=== PATIENT | male | born 1980 | race Two or more races ===

== ENCOUNTER 2017-04-12 16:27 | Emergency (ER) | payer MEDICAID ==
[~2017-04-12] VITALS: Ht 170.2 cm; Wt 95.3 kg
[~2017-04-12 16:27] MED LIST: AMOXICILLIN500 MG PO; DOXYCYCLINE MO100 MG ORAL; GRISEOFULVIN500 MG PO; HUMALOG100 UNIT/3 SUBQ; HUMALOG100 UNIT/4 SUBQ; IBUPROFEN600 MG ORAL; IBUPROFEN600 MG PO; LANTUS SOL100 UNIT/1 SUBQ; LEVEMIR FL100 UNIT/1 SUBQ; LEVEMIR100 UNIT/1 SUBQ; LEVEMIR100 UNITS/ SUBQ; NOVOLOG100 UNIT/3 SUBQ; NOVOLOG100 UNIT/4 SQ; VIBRAMYCIN100 MG ORAL; VICODIN 5-5001 EACH PO
[2017-04-12 16:35] VITALS: BP 129/93
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
[2017-04-12] MEDS ORDERED: LOSARTAN POTASS25 MG ORAL (17:08)
[2017-04-12] MEDS ORDERED: LANTUS SOL100 UNIT/1 SUBQ (17:08)
[2017-04-12] MEDS ORDERED: TRAMADOL HCL50 MG ORAL (18:10)
[2017-04-12] MEDS ORDERED: IBUPROFEN600 MG ORAL (18:10)
[2017-04-12 18:20] VITALS: BP 129/93
--- NOTE | 2017-04-13 11:55 | Diagnostic Imaging Report ---
Indication: Pain Comparison: None Findings: Right rib series performed with 3 views. No obvious fracture seen. The right lung is essentially clear. There is no pneumothorax. Impression: No acute fracture identified
== END 2017-04-12 18:20 | disposition home or self-care (01) ==
LOC: EMR 17:30
DX: S22.31XA Fracture of one rib, right side, initial encounter for closed fracture (principal); E11.9 Type 2 diabetes mellitus without complications; Y00.XXXA Assault by blunt object, initial encounter; Y92.9 Unspecified place or not applicable
CPT/HCPCS: 99283

== ENCOUNTER 2017-11-10 14:23 | Emergency (ER) | payer MEDICAID ==
[~2017-11-10] VITALS: Ht 170.2 cm; Wt 99.8 kg
[~2017-11-10 14:23] MED LIST changes: +LOSARTAN POTASS25 MG ORAL; +TRAMADOL HCL50 MG ORAL
--- NOTE | 2017-11-10 15:03 | Emergency Room Report ---
History of Present Illness General Chief Complaint: Back Pain-No Injury Source: Patient Present Illness HPI 37 yo male patient back pain x1 week. Reports no hx of accident or trauma. Reports hx of uncontrolled diabetes. Reports pain worse when laying down and improved with standing up. Complains of diffuse abdominal pain. Reports constipation, last BM today. Denies blood in stool or diarrhea. Reports urinary symptoms, feels like hes "holding onto urine". Denies dysuria, hematuria, penile discharge. Sohail hx of kidney stones. Denies radiation of pain. Denies fever, chest pain, SOB. Denies hx of surgery. Denies hx of cancer or IVDA. Allergies: Coded Allergies: No Known Allergies (Unverified , 11/06/15) Patient History Past Medical History: see triage record Reviewed Nursing Documentation: PMH: Agreed; PSxH: Agreed Nursing Documentation-PMH Past Medical History: No History, Except For Hx Diabetes: Yes Review of Systems All Other Systems: negative except mentioned in HPI Physical Exam Vital Signs Date Time Temp Pulse Resp B/P (MAP) Pulse Ox O2 Delivery O2 Flow Rate FiO2 11/10/17 14:29 98.3 93 18 148/89 98 Room Air 98.2 Sp02 EP Interpretation: reviewed, normal General Appearance: well appearing, no apparent distress, alert, GCS 15, non- toxic Head: normocephalic, atraumatic Eyes: bilateral eye normal inspection, bilateral eye PERRL ENT: hearing grossly normal, normal pharynx, no angioedema, normal voice, uvula midline, moist mucus membranes Neck: full range of motion Respiratory: lungs clear, normal breath sounds, no rhonchi, no respiratory distress, no accessory muscle use, no wheezing, speaking full sentences Cardiovascular #1: regular rate, rhythm, no edema Gastrointestinal: no mass, no hernia, no pulsatile mass, tenderness, other - negative obturator Rectal: normal exam, normal rectal tone, prostate non-tender Genitourinary: no CVA tenderness Musculoskeletal: back normal, digits/nails normal, gait/station normal, normal range of motion, non-tender, no calf tenderness Neurologic: alert, oriented x3, responsive, motor strength/tone normal, SLR negative, sensory intact Psychiatric: mood/affect normal Skin: no rash Lymphatic: no adenopathy Medical Decision Making PA Attestation Dr. Coreas is my supervising Physician whom patient management has been discussed with. Diagnostic Impression: Primary Impression: Sacroiliitis Additional Impressions: Elevated amylase Personal history of diabetes mellitus Elevated random blood glucose level Creatinine elevation Constipation ER Course Pt presents to ED c/o back pain. Worse when laying down. DDX considered but are not limited to sprain, strain, cauda equine, epidural abscess, AAA, spinal cord compression, kidney stones. Ddx considered but are not limited to UTI, cholelithiasis, cholecystitis, pancreatitis, posterior gastric ulcer. Low suspicion for cauda equina, strength equal in bilateral lower extremities, rectal tone normal, no TTP of prostate. No fever, nontoxic appearing, no radiation of pain, low suspicion for epidural mass. No abdominal pain, no blood pressure elevation, nontoxic appearing, low suspicion for AAA. VITAL SIGNS are WNL, patient is afebrile. Mild elevation of blood pressure, followup with primary care provider for further treatment and referral. ORDERS: CBC, CMP, Lipase, UA, CT abdomen pelvis, fluids, and pain medication. ER COURSE: UA negative for nitrites and WBC, low suspicion for UTI. Will not treat with abx. CBC no elevation in WBC CMP no elevation in LFTs, shows elevated creatinine, BUN, and blood sugar. Lipase WNL, low suspicion for pancreatitis. Amylase elevated. Followup with primary care provider for repeat labs. Discuss results with patient Copy of labs provided to patient. CT shows No definite acute abnormality, Nonspecific mild bilateral perinephric fat stranding, could indicate acute inflammation but is more likely chronic. Minimal sacroiliac joint degeneration bilaterally. Patient reports feeling better following administration pain medication. Negative appendicitis, diverticulitis, cholecystitis. Copy of CT provided to patient. Followup with primary care provider for further diagnosis and treatment. Lose weight and stretch. Tylenol for pain. Will provide Colace for constipation symptoms. Discuss with patient uncontrolled diabetes can lead to complications in kidneys , eyes, and peripheral neuropathy. Labs results may be due to uncontrolled DM. Monitor blood glucose better. F/u with primary care provider for further treatment and management. Patient reports feeling better following administration of pain medication. Patient resting comfortably, in no acute distress, nontoxic appearing, walking unassisted and talking without difficulty. Patient seen and evaluated by Dr. Coreas. Agrees with treatment and plan. DISCHARGE: -Rx provided for Tylenol -Rx provided for Lidocaine patch -Rx provided for Colace At this time pt. is stable for d/c to home. At this time patient is resting comfortably, in no acute distress, nontoxic appearing, smiling and talking without difficulty. Will provide printed patient care instructions, and any necessary prescriptions. Patient instructed to follow with primary care provider for further treatment and referral as needed. Care plan and follow up instructions have been discussed with the patient prior to discharge. Patient reports understanding and agreement to treatment plan. Patient questions asked and answered. ER precautions given, patient instructed to return to ER immediately for any new or worsening of symptoms. Labs Test 11/10/17 14:35 11/10/17 15:30 Urine Color Yellow Urine Appearance Clear Urine pH 5 (4.5-8.0) Urine Specific [place] 1.020 (1.005-1.035) Urine Protein 4+ (NEGATIVE) Urine Glucose (UA) 2+ (NEGATIVE) Urine Ketones 1+ (NEGATIVE) Urine Occult Blood 2+ (NEGATIVE) Urine Nitrite Negative (NEGATIVE) Urine Bilirubin Negative (NEGATIVE) Urine Urobilinogen Normal MG/DL (0.0-1.0) Urine Leukocyte Esterase 1+ (NEGATIVE) Urine RBC 2-4 /HPF (0 - 0) Urine WBC 0-2 /HPF (0 - 0) Urine Squamous Epithelial Cells Occasional /LPF Urine Bacteria Few /HPF (NONE) White Blood Count 7.7 K/UL (4.8-10.8) Red Blood Count 4.39 M/UL (4.70-6.10) Hemoglobin 12.9 G/DL (14.2-18.0) Hematocrit 38.8 % (42.0-52.0) Mean Corpuscular Volume 88 FL (80-99) Mean Corpuscular Hemoglobin 29.5 PG (27.0-31.0) Mean Corpuscular Hemoglobin Concent 33.3 G/DL (32.0-36.0) Red Cell Distribution Width 11.7 % (11.6-14.8) Platelet Count 313 K/UL (150-450) Mean Platelet Volume 10.8 FL (6.5-10.1) Neutrophils (%) (Auto) 77.2 % (45.0-75.0) Lymphocytes (%) (Auto) 16.6 % (20.0-45.0) Monocytes (%) (Auto) 4.1 % (1.0-10.0) Eosinophils (%) (Auto) 1.0 % (0.0-3.0) Basophils (%) (Auto) 1.1 % (0.0-2.0) Sodium Level 142 MMOL/L (136-145) Potassium Level 4.6 MMOL/L (3.5-5.1) Chloride Level 105 MMOL/L (98-107) Carbon Dioxide Level 28 MMOL/L (21-32) Anion Gap 9 mmol/L (5-15) Blood Urea Nitrogen 25 mg/dL (7-18) Creatinine 2.0 MG/DL (0.55-1.30) Estimat Glomerular Filtration Rate 38.2 mL/min (>60) Glucose Level 201 MG/DL (74-106) Calcium Level 8.7 MG/DL (8.5-10.1) Total Bilirubin 0.3 MG/DL (0.2-1.0) Aspartate Amino Transf (AST/SGOT) 17 U/L (15-37) Alanine Aminotransferase (ALT/SGPT) 22 U/L (12-78) Alkaline Phosphatase 129 U/L (46-116) Total Protein 7.2 G/DL (6.4-8.2) Albumin 3.1 G/DL (3.4-5.0) Globulin 4.1 g/dL Albumin/Globulin Ratio 0.8 (1.0-2.7) Amylase Level 179 U/L (25-115) Lipase 190 U/L (73-393) CT/MRI/US Diagnostic Results CT/MRI/US Diagnostic Results : Imaging Test Ordered: CT abdomen pelvis Impression No definite acute abnormality Nonspecific mild bilateral perinephric fat stranding, could indicate acute inflammation but is more likely chronic Minimal sacroiliac joint degeneration bilaterally Last Vital Signs Date Time Temp Pulse Resp B/P (MAP) Pulse Ox O2 Delivery O2 Flow Rate FiO2 11/10/17 14:29 98.3 93 18 148/89 98 Room Air 98.2 Disposition: HOME, SELF-CARE Condition: Stable Scripts Lidocaine (Lidocaine) 1 Each Adh..patch 700 MG TP DAILY for 7 Days, #7 PATCH Prov: Philip Gibbs P.A. 11/10/17 Docusate Sodium* (COLACE*) 100 Mg Capsule 100 MG ORAL TWICE A DAY for 5 Days, #10 CAP Prov: Philip Gibbs P.A. 11/10/17 Acetaminophen* (TYLENOL EXTRA STRENGTH*) 500 Mg Tablet 500 MG ORAL Q8H PRN for Prn Headache/Temp > 101, #30 TAB 0 Refills Prov: Philip Gibbs 11/10/17 Patient Instructions: Back Pain, Adult, Blood Amylase Test, Constipation, Adult , [id number], Diabetes Mellitus and Food, Diabetic Nephropathy, Serum Creatinine Test Additional Instructions: Followup with primary care provider in 1-3 days. Discuss referral to kidney specialist. Discuss diabetes medication. Control blood glucose levels. Take medications as directed. Drink plenty of fluids. Patient questions asked and answered. ER precautions given, patient instructed to return to ER immediately for any new or worsening of symptoms. Philip Gibbs Nov 10, 2017 15:03
[2017-11-10 15:30] LABS: APPEARANCE,URINE CLEAR; BILIRUBIN, URINE NEGATIVE (NEGATIVE); GLUCOSE, URINE (UA) 2+ (NEGATIVE); KETONES,URINE 1+ (NEGATIVE); LEUKOCYTE ESTERASE ,URINE 1+ (NEGATIVE); NITRITE,URINE NEGATIVE (NEGATIVE); PH,URINE 5 (4.5-8.0); PROTEIN,URINE 4+ (NEGATIVE); UROBILINOGEN,URINE NORMAL MG/DL (0.0-1.0)
[2017-11-10 15:31] LABS: COLOR,URINE YELLOW
[2017-11-10 15:42] LABS: BASOPHILS % (AUTO) 1.1 % (0.0-2.0); HEMATOCRIT 38.8 % (42.0-52.0); HEMOGLOBIN 12.9 G/DL (14.2-18.0); LYMPHOCYTES % (AUTO) 16.6 % (20.0-45.0); MEAN CORPUSCULAR VOLUME 88 FL (80-99); MONOCYTES % (AUTO) 4.1 % (1.0-10.0); NEUTROPHILS % (AUTO) 77.2 % (45.0-75.0); PLATELET COUNT 313 K/UL (150-450); RED BLOOD COUNT 4.39 M/UL (4.70-6.10); RED CELL DISTRIBUTION WIDTH 11.7 % (11.6-14.8); WHITE BLOOD COUNT 7.7 K/UL (4.8-10.8)
[2017-11-10 15:59] LABS: ANION GAP 9 mmol/L (5-15); BLOOD UREA NITROGEN 25 mg/dL (7-18); CALCIUM 8.7 MG/DL (8.5-10.1); CARBON DIOXIDE 28 MMOL/L (21-32); CHLORIDE 105 MMOL/L (98-107); POTASSIUM 4.6 MMOL/L (3.5-5.1); SODIUM 142 MMOL/L (136-145)
--- NOTE | 2017-11-10 16:02 | Diagnostic Imaging Report ---
Indication: Abdominal pain, back pain x1 week Technique: Spiral acquisitions obtained through the abdomen and pelvis. No oral contrast utilized, per emergency room physician request No IV contrast utilized, per referring physician request.. Multiplanar reconstructions were generated. Total dose length product 1046.4 mGycm. CTDIvol(s) 18.84 mGy. Dose reduction achieved using automated exposure control Comparison: none Findings: No renal or ureteral calculi, hydronephrosis, or hydroureter demonstrated. There is nonspecific bilateral perinephric fat stranding. Lack of IV contrast limits assessment of the renal parenchyma. No gross renal parenchymal mass or cyst demonstrated. Lack of IV contrast limits assessment of the other solid organs. The liver, gallbladder, bile ducts, pancreas, adrenals are unremarkable. No retroperitoneal or mesenteric mass or adenopathy. No pelvic mass or adenopathy. Bladder is empty apparent bladder wall thickening is presumably an artifact of nondistention. Lack of enteric contrast limits assessment of the GI tract. No evidence of diverticulosis or diverticulitis. The appendix is normal. No small bowel distention. No free or loculated intraperitoneal air or fluid is evident. The distal esophagus, stomach, duodenum are unremarkable The included lung bases are clear. The bones demonstrate mild degenerative changes of the bilateral sacroiliac joints. Impression: No definite acute abnormality Nonspecific mild bilateral perinephric fat stranding, could indicate acute inflammation but is more likely chronic Minimal sacroiliac joint degeneration bilaterally The CT scanner at [facility] is accredited by the [employer] and the scans are performed using protocols designed to limit radiation exposure to as low as reasonably achievable to attain images of sufficient resolution adequate for diagnostic evaluation.
[2017-11-10 16:05] LABS: ALANINE AMINOTRANSFERASE 22 U/L (12-78); ALBUMIN 3.1 G/DL (3.4-5.0); ALBUMIN/GLOBULIN RATIO 0.8 (1.0-2.7); ALKALINE PHOSPHATASE 129 U/L (46-116); AMYLASE 179 U/L (25-115); ASPARTATE AMINO TRANSFERASE 17 U/L (15-37); BILIRUBIN,TOTAL 0.3 MG/DL (0.2-1.0)
[2017-11-10] MEDS ORDERED: TYLENOL EXTRA500 MG ORAL (17:57)
[2017-11-10] MEDS ORDERED: COLACE100 MG ORAL (17:57)
[2017-11-10] MEDS ORDERED: LIDOCAINE700 M1 TP (17:57)
[2017-11-10 18:23] VITALS: BP 166/98
== END 2017-11-10 18:27 | disposition home or self-care (01) ==
LOC: EMR 14:40
DX: M46.1 Sacroiliitis, not elsewhere classified (principal); R74.8 Abnormal levels of other serum enzymes; E11.65 Type 2 diabetes mellitus with hyperglycemia; K59.00 Constipation, unspecified; R94.4 Abnormal results of kidney function studies
CPT/HCPCS: 36415; 74176; 80053; 81003; 82150; 83690; 85025; 96361; 96374; 99284

== ENCOUNTER 2017-11-17 15:59 | Emergency (ER) | payer MEDICAID ==
[~2017-11-17] VITALS: Ht 170.2 cm; Wt 99.8 kg
[~2017-11-17 15:59] MED LIST changes: +COLACE100 MG ORAL; +LIDOCAINE700 M1 TP; +TYLENOL EXTRA500 MG ORAL
[2017-11-17 16:30] VITALS: BP 147/79
--- NOTE | 2017-11-17 16:47 | Emergency Room Report ---
History of Present Illness General Chief Complaint: General Complaint Source: Patient Present Illness HPI 37 yo male patient presents to ER complaining of difficulty with bowel movements. Reports small "edd" coming out when has a BM. Reports taking Colace and eating prunes without relief of symptoms. Recently seen in ER for similar symptoms. Also reports needs refill of DM medication; reports taking Lantus. States has primary care appointment at the end of the month. Denies fever, chest pain, SOB, nausea, vomiting, diarrhea, abdominal pain. Denies dysuria, hematuria. Allergies: Coded Allergies: No Known Allergies (Unverified , 11/06/15) Patient History Past Medical History: see triage record Reviewed Nursing Documentation: PMH: Agreed; PSxH: Agreed Nursing Documentation-PMH Hx Diabetes: Yes Review of Systems All Other Systems: negative except mentioned in HPI Physical Exam Vital Signs Date Time Temp Pulse Resp B/P (MAP) Pulse Ox O2 Delivery O2 Flow Rate FiO2 11/17/17 16:18 98.2 89 17 147/79 97 Room Air 98.2 Sp02 EP Interpretation: reviewed, normal General Appearance: well appearing, no apparent distress, alert, GCS 15, non- toxic Head: normocephalic, atraumatic Eyes: bilateral eye normal inspection, bilateral eye PERRL Neck: full range of motion Respiratory: lungs clear, normal breath sounds, no rhonchi, no respiratory distress, no accessory muscle use, no wheezing, speaking full sentences Cardiovascular #1: regular rate, rhythm, no edema Gastrointestinal: normal bowel sounds, non tender, soft, no mass, non-distended , no guarding, no rebound, other - negative Rovsing, negative TTP at McBurney's point, negative Saunders Genitourinary: no CVA tenderness Musculoskeletal: back normal, digits/nails normal, gait/station normal, normal range of motion, non-tender Neurologic: alert, oriented x3, responsive, motor strength/tone normal, sensory intact Skin: no rash Medical Decision Making PA Attestation Dr. Croeas is my supervising Physician whom patient management has been discussed with. Diagnostic Impression: Primary Impression: Constipation Additional Impression: Hx of diabetes mellitus ER Course Pt. presents to the ED requesting prescription refill and constipation. Multiple differentials were considered. Previously seen in ER, does not require labs or imaging at this time. Previously results reviewed. Vital signs: are WNL, pt. is afebrile ORDERS: PE benign, no TTP of abdomen. Informed patient do not normally provide refill of medication again in ER. Will provide 30 day supply of medication. Contact primary care provider for further treatment. Informed patient ER cannot provide refills in the future; followup, management and prescription of long-term medications must be performed by primary care provider. Will provide Lactulose for constipation symptoms. Patient asked if can perform enema at home. Instructed patient to perform as instructed on medication and consult with pharmacist for further questions and use. Drink plenty of fluids. Take Tylenol for pain symptoms that may arise. Continue to eat DM friendly diet, discuss further treatment with primary care provider at scheduled appointment. Do not cancel appointment. DISCHARGE: Rx provided for Lactulose. Rx provided for Lantus for 30 days. At this time pt is stable for d/c to home. Patient is resting comfortably, in no acute distress, nontoxic appearing, talking without difficulty. Patient to take medications as instructed Will provide with patient care instructions and any necessary prescriptions. Care plan and follow-up instructions provided. Patient instructed to follow-up with primary care provider in 3 - 5 days. Patient questions asked and answered. Patient reports understanding and agreement to treatment plan. ER precautions given. Patient instructed to return to ER immediately for any new or worsening of symptoms including but not limited to increasing SOB, persistent fever. Last Vital Signs Date Time Temp Pulse Resp B/P (MAP) Pulse Ox O2 Delivery O2 Flow Rate FiO2 11/17/17 16:18 98.2 89 17 147/79 97 Room Air 98.2 Disposition: HOME, SELF-CARE Condition: Stable Scripts Insulin Glargine (LANTUS) 100 Unit/1 Ml Insuln.pen 30 UNITS SUBQ BEDTIME, #1 EA 0 Refills Prov: Philip Gibbs P.A. 11/17/17 Lactulose (LACTULOSE*) 20 Gm/30 Ml Solution 30 ML ORAL DAILY for 3 Days, #120 ML 0 Refills Prov: Philip Gibbs P.A. 11/17/17 Patient Instructions: Constipation, Adult, [id number], Diabetes and Exercise , Medicine Refill at the Emergency Department Additional Instructions: Followup with primary care provider. Call and try to schedule earlier appointment. ER does not normally provide refills of medications. Drink fluids, do not become dehydrated. Take medications as directed. Patient questions asked and answered. ER precautions given, patient instructed to return to ER immediately for any new or worsening of symptoms. Philip Gibbs Nov 17, 2017 16:47
[2017-11-17] MEDS ORDERED: LACTULOSE20 GM/301 ORAL (17:00)
[2017-11-17] MEDS ORDERED: LANTUS SOL100 UNIT/1 SUBQ (17:01)
[2017-11-17 17:18] VITALS: BP 147/79
== END 2017-11-17 17:18 | disposition home or self-care (01) ==
LOC: EMR 16:57
DX: K59.00 Constipation, unspecified (principal); E11.9 Type 2 diabetes mellitus without complications; Z76.0 Encounter for issue of repeat prescription
CPT/HCPCS: 99284

== ENCOUNTER 2018-06-15 10:47 | Emergency (ER) | payer MEDICAID ==
[~2018-06-15] VITALS: Ht 170.2 cm; Wt 86.2 kg
[~2018-06-15 10:47] MED LIST changes: +LACTULOSE20 GM/301 ORAL
[2018-06-15] MEDS ORDERED: NORVASC10 MG ORAL (11:04)
[2018-06-15] MEDS ORDERED: METFORMIN500 MG/5 M PO (11:04)
[2018-06-15] MEDS ORDERED: LIPITOR80 MG ORAL (11:04)
[2018-06-15] MEDS ORDERED: FUROSEMIDE40 MG/5 ML ORAL (11:04)
[2018-06-15 11:38] VITALS: BP 143/73
[2018-06-15 11:40] LABS: APPEARANCE,URINE CLEAR; BILIRUBIN, URINE NEGATIVE (NEGATIVE); COLOR,URINE PALE YELLOW; GLUCOSE, URINE (UA) 3+ (NEGATIVE); KETONES,URINE NEGATIVE (NEGATIVE); LEUKOCYTE ESTERASE ,URINE NEGATIVE (NEGATIVE); NITRITE,URINE NEGATIVE (NEGATIVE); PH,URINE 6 (4.5-8.0); PROTEIN,URINE 3+ (NEGATIVE); UROBILINOGEN,URINE NORMAL MG/DL (0.0-1.0)
[2018-06-15 11:41] LABS: BASOPHILS % (AUTO) 1.4 % (0.0-2.0); HEMATOCRIT 37.8 % (42.0-52.0); HEMOGLOBIN 12.6 G/DL (14.2-18.0); LYMPHOCYTES % (AUTO) 20.6 % (20.0-45.0); MEAN CORPUSCULAR VOLUME 87 FL (80-99); MONOCYTES % (AUTO) 5.3 % (1.0-10.0); NEUTROPHILS % (AUTO) 69.7 % (45.0-75.0); PLATELET COUNT 285 K/UL (150-450); RED BLOOD COUNT 4.34 M/UL (4.70-6.10); WHITE BLOOD COUNT 7.2 K/UL (4.8-10.8)
[2018-06-15 11:56] LABS: ANION GAP 9 mmol/L (5-15); BLOOD UREA NITROGEN 35 mg/dL (7-18); CALCIUM 8.8 MG/DL (8.5-10.1); CARBON DIOXIDE 24 MMOL/L (21-32); CHLORIDE 102 MMOL/L (98-107); CREATININE 2.3 MG/DL (0.55-1.30); POTASSIUM 5.4 MMOL/L (3.5-5.1); SODIUM 135 MMOL/L (136-145)
[2018-06-15 12:01] LABS: ALANINE AMINOTRANSFERASE 29 U/L (12-78); ALBUMIN 3.1 G/DL (3.4-5.0); ALBUMIN/GLOBULIN RATIO 0.7 (1.0-2.7); ALKALINE PHOSPHATASE 137 U/L (46-116); ASPARTATE AMINO TRANSFERASE 22 U/L (15-37); BILIRUBIN,TOTAL 0.3 MG/DL (0.2-1.0)
[2018-06-15] MEDS ORDERED: FUROSEMIDE40 MG ORAL (13:57)
[2018-06-15] MEDS ORDERED: BLOOD GLUCOSE1 EAC1 MC (13:57)
[2018-06-15] MEDS ORDERED: BLOOD GLUOCSE1 EACH MC (13:57)
[2018-06-15 14:11] VITALS: BP 138/68
--- NOTE | 2018-06-15 19:49 | Emergency Room Report ---
History of Present Illness General Chief Complaint: Abnormal Labs Source: Patient Present Illness HPI The patient is a 37-year-old male presented after he was noted to have a low blood sugar. The patient had taken his Lantus insulin but did not eat. He subsequently began having nausea as well as near-syncope. She was noted to have a blood sugar low by EMS and was given dextrose. Allergies: Coded Allergies: No Known Allergies (Unverified , 11/06/15) Patient History Past Medical History: see triage record Reviewed Nursing Documentation: PMH: Agreed; PSxH: Agreed Nursing Documentation-PMH Past Medical History: No History, Except For Hx Hypertension: Yes Hx Diabetes: Yes Review of Systems All Other Systems: negative except mentioned in HPI Physical Exam Vital Signs Date Time Temp Pulse Resp B/P (MAP) Pulse Ox O2 Delivery O2 Flow Rate FiO2 06/15/18 10:53 97.9 77 17 143/73 98 Room Air General Appearance: well appearing, no apparent distress, alert, GCS 15 Head: normocephalic, atraumatic ENT: hearing grossly normal, normal voice Neck: full range of motion, supple Respiratory: no respiratory distress, speaking full sentences Cardiovascular #1: normal inspection, regular rate, rhythm Musculoskeletal: normal inspection, back normal, digits/nails normal, no calf tenderness Neurologic: normal inspection, alert, oriented x3, responsive, normal gait Psychiatric: mood/affect normal Skin: no rash Medical Decision Making Diagnostic Impression: Primary Impression: Hypoglycemic reaction ER Course Patient presented for generalized weakness. Differential diagnosis included was not limited to anemia, urinary tract infection, electrolyte abnormality, hypothyroidism, myocardial infarction, myasthenia gravis, dehydration, among others. The patient was able to tolerate fluids. The patient given note for work. Laboratory testing was notable for renal insufficiency. Patient was noted to be taking diuretics. Patient's Lasix was refilled. The patient was advised to recheck with his primary care physician tomorrow. Labs Test 06/15/18 11:30 White Blood Count 7.2 K/UL (4.8-10.8) Red Blood Count 4.34 M/UL (4.70-6.10) Hemoglobin 12.6 G/DL (14.2-18.0) Hematocrit 37.8 % (42.0-52.0) Mean Corpuscular Volume 87 FL (80-99) Mean Corpuscular Hemoglobin 29.0 PG (27.0-31.0) Mean Corpuscular Hemoglobin Concent 33.4 G/DL (32.0-36.0) Red Cell Distribution Width 11.0 % (11.6-14.8) Platelet Count 285 K/UL (150-450) Mean Platelet Volume 9.6 FL (6.5-10.1) Neutrophils (%) (Auto) 69.7 % (45.0-75.0) Lymphocytes (%) (Auto) 20.6 % (20.0-45.0) Monocytes (%) (Auto) 5.3 % (1.0-10.0) Eosinophils (%) (Auto) 3.0 % (0.0-3.0) Basophils (%) (Auto) 1.4 % (0.0-2.0) Urine Color Pale yellow Urine Appearance Clear Urine pH 6 (4.5-8.0) Urine Specific [place] 1.005 (1.005-1.035) Urine Protein 3+ (NEGATIVE) Urine Glucose (UA) 3+ (NEGATIVE) Urine Ketones Negative (NEGATIVE) Urine Blood 2+ (NEGATIVE) Urine Nitrite Negative (NEGATIVE) Urine Bilirubin Negative (NEGATIVE) Urine Urobilinogen Normal MG/DL (0.0-1.0) Urine Leukocyte Esterase Negative (NEGATIVE) Urine RBC 0-2 /HPF (0 - 0) Urine WBC 0 /HPF (0 - 0) Urine Squamous Epithelial Cells None /LPF (NONE/OCC) Urine Bacteria None /HPF (NONE) Sodium Level 135 MMOL/L (136-145) Potassium Level 5.4 MMOL/L (3.5-5.1) Chloride Level 102 MMOL/L (98-107) Carbon Dioxide Level 24 MMOL/L (21-32) Anion Gap 9 mmol/L (5-15) Blood Urea Nitrogen 35 mg/dL (7-18) Creatinine 2.3 MG/DL (0.55-1.30) Estimat Glomerular Filtration Rate 32.5 mL/min (>60) Glucose Level 228 MG/DL (74-106) Calcium Level 8.8 MG/DL (8.5-10.1) Total Bilirubin 0.3 MG/DL (0.2-1.0) Aspartate Amino Transf (AST/SGOT) 22 U/L (15-37) Alanine Aminotransferase (ALT/SGPT) 29 U/L (12-78) Alkaline Phosphatase 137 U/L (46-116) Total Protein 7.4 G/DL (6.4-8.2) Albumin 3.1 G/DL (3.4-5.0) Globulin 4.3 g/dL Albumin/Globulin Ratio 0.7 (1.0-2.7) Lipase 275 U/L (73-393) Last Vital Signs Date Time Temp Pulse Resp B/P (MAP) Pulse Ox O2 Delivery O2 Flow Rate FiO2 06/15/18 14:11 97.9 79 17 138/68 98 Room Air Status: improved Disposition: HOME, SELF-CARE Condition: Stable Scripts Blood Sugar Diagnostic (BLOOD GLUOCSE TEST) 1 Each Strip EACH MC, #1 Prov: Jonathan Coreas MD 06/15/18 Blood-Glucose Meter (BLOOD GLUCOSE METER) 1 Each Each EACH , #1 Prov: Jonathan Coreas MD 06/15/18 Furosemide* (LASIX*) 40 Mg Tablet 40 MG ORAL DAILY, #20 TAB Prov: Jonathan Coreas MD 06/15/18 Departure Forms: Return to Work Return to Work in (Days): 2 Patient Instructions: Hypoglycemia, [id number] Jonathan Coreas MD Jun 15, 2018 19:49
== END 2018-06-15 14:16 | disposition home or self-care (01) ==
LOC: EMR 11:32
DX: E11.649 Type 2 diabetes mellitus with hypoglycemia without coma (principal); I10 Essential (primary) hypertension; Z79.4 Long term (current) use of insulin
CPT/HCPCS: 36415; 80053; 81003; 82962; 83690; 85025; 99284

== ENCOUNTER 2020-07-08 09:00 | Inpatient (IN) | payer MEDICAID, OTHER ==
[2020-07-08] VITALS (10 sets, daily range): BP systolic 124–184; BP diastolic 54–73
[~2020-07-08] VITALS: Ht 170.2 cm; Wt 72.6 kg
[~2020-07-08 09:00] MED LIST changes: +BLOOD GLUCOSE1 EAC1 MC; +BLOOD GLUOCSE1 EACH MC; +FUROSEMIDE40 MG ORAL; +FUROSEMIDE40 MG/5 ML ORAL; +LIPITOR80 MG ORAL; +METFORMIN500 MG/5 M PO; +NORVASC10 MG ORAL
--- NOTE | 2020-07-08 09:08 | NUR ---
ED Nurse Note: Pt arrived with RA 34 due hyperglycemia from home, per ems their glucometer read "high". Pt has been vomtiing and has been tachycardiac on cardiac rehab nurse at 122. Pt iv line established patent and intact. blood sent to lab Addendum: 07/08/20 at 0947 by PDELEON ED Nurse Note: Pt arrived with RA 34 due hyperglycemia from home, per ems their glucometer read "high". Pt has been vomiting* and has been tachycardiac on cardiac rehab nurse at 122. Pt iv line established patent and intact. blood sent to lab
--- NOTE | 2020-07-08 09:13 | Emergency Room Report ---
History of Present Illness General Chief Complaint: Abnormal Labs Source: Patient, Medical Record Present Illness HPI Patient is a 39-year-old male presents for increased generalized weakness as well as elevated blood sugar. Had increased epigastric pain associated vomiting and diarrhea. Reports having prior history of type 1 diabetes. States he ran out of his short acting insulin. Continue to take a long-acting insulin. Denies any fever. States he is had recent negative coronavirus testing. Multiple episodes of nonbloody emesis. Had previously had occasional episodes of diabetic ketoacidosis. Denies any prior history of heart attack or coronary disease. Patient is currently staying at a transitional housing unit. Patient reports having increased thirst as well as increased urination. Blood sugar had tested "high" when brought in by EMS. 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 COVID-19 Screening: Negative COVID-19 COVID-19 Testing Source: 1 week ago Patient History Past Medical History: see triage record Reviewed Nursing Documentation: PMH: Agreed; PSxH: Agreed Nursing Documentation-PMH Past Medical History: No History, Except For Hx Hypertension: Yes Hx Diabetes: Yes Review of Systems All Other Systems: negative except mentioned in HPI Physical Exam Vital Signs Date Time Temp Pulse Resp B/P (MAP) Pulse Ox O2 Delivery O2 Flow Rate FiO2 07/08/20 08:55 98.4 124 26 162/71 (101) 99 Room Air Sp02 EP Interpretation: reviewed, normal General Appearance: alert, GCS 15, moderate distress Head: atraumatic ENT: normal ENT inspection, hearing grossly normal, normal voice, other - Mucosa dry Neck: normal inspection, full range of motion, supple, no bony tend Respiratory: lungs clear, normal breath sounds, no retraction, no wheezing, other - [place] respirations Cardiovascular #1: regular rate, rhythm, no edema Gastrointestinal: normal inspection, normal bowel sounds, non tender, soft, no guarding, no hernia Genitourinary: no CVA tenderness Musculoskeletal: normal inspection, back normal, normal range of motion Neurologic: alert, 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 Total critical care time excluding procedures approximately 45 minutes. Medical Decision Making Diagnostic Impression: Primary Impression: Diabetic keto-acidosis Additional Impression: Tachycardia ER Course Patient presented for increased generalized weakness and shortness of breath. Differential diagnosis include was not limited to diabetic ketoacidosis, electrolyte abnormality, gastroenteritis among others. Because of complexity of patient's case laboratory tests and imaging studies were ordered. Patient was noted to have prior history of type 1 diabetes and respirations and sugar suggest patient some diabetic ketoacidosis. Initial EKG showed sinus tachycardia with a rate of 119 with marked motion artifact due to rapid respirations. Patient was started on IV fluids and IV insulin. He was given antiemetics as well as antacids.Venous blood gas showed low pH consistent with diabetic ketoacidosis.Patient was noted to have marked acidosis as well as anion gap which was 32 bicarb was less than 5. Patient was started on high dose IV fluids as well as insulin drip. He was given Reglan for vomiting as well as Zofran. Dr. Kendy Freeman was contacted for inpatient management. Patient was admitted to ICU due to diabetic ketoacidosis. Labs Test 07/08/20 09:07 07/08/20 09:14 White Blood Count 21.9 K/UL (4.8-10.8) Red Blood Count 4.39 M/UL (4.70-6.10) Hemoglobin 13.4 G/DL (14.2-18.0) Hematocrit 46.1 % (42.0-52.0) Mean Corpuscular Volume 105 FL (80-99) Mean Corpuscular Hemoglobin 30.5 PG (27.0-31.0) Mean Corpuscular Hemoglobin Concent 29.0 G/DL (32.0-36.0) Red Cell Distribution Width 13.1 % (11.6-14.8) Platelet Count 320 K/UL (150-450) Mean Platelet Volume 11.6 FL (6.5-10.1) Neutrophils (%) (Auto) % (45.0-75.0) Lymphocytes (%) (Auto) % (20.0-45.0) Monocytes (%) (Auto) % (1.0-10.0) Eosinophils (%) (Auto) % (0.0-3.0) Basophils (%) (Auto) % (0.0-2.0) Sodium Level 125 MMOL/L (136-145) Potassium Level 5.8 MMOL/L (3.5-5.1) Chloride Level 88 MMOL/L (98-107) Carbon Dioxide Level 5 MMOL/L (21-32) Anion Gap 32 mmol/L (5-15) Blood Urea Nitrogen 64 mg/dL (7-18) Creatinine 4.0 MG/DL (0.55-1.30) Estimat Glomerular Filtration Rate 17.0 mL/min (>60) Glucose Level 1079 MG/DL (74-106) Calcium Level 9.0 MG/DL (8.5-10.1) Magnesium Level 2.8 MG/DL (1.8-2.4) Total Bilirubin 0.6 MG/DL (0.2-1.0) Aspartate Amino Transf (AST/SGOT) 29 U/L (15-37) Alanine Aminotransferase (ALT/SGPT) 39 U/L (12-78) Alkaline Phosphatase 189 U/L (46-116) Troponin I 0.088 ng/mL (0.000-0.056) Total Protein 7.4 G/DL (6.4-8.2) Albumin 3.4 G/DL (3.4-5.0) Globulin 4.0 g/dL Albumin/Globulin Ratio 0.9 (1.0-2.7) Lipase 140 U/L (73-393) Acetone Level Positive-moderate (NEGATIVE) Venous Blood pH 7.023 Venous Blood Partial Pressure CO2 19.1 Venous Blood Partial Pressure O2 40.5 Venous Blood HCO3 4.9 Venous Blood Total Carbon Dioxide 19.1 Venous Blood Base Excess -24.4 Venous Blood Carboxyhemoglobin 0.1 % (0.5-1.5) Methemoglobin 0.8 Last Vital Signs Date Time Temp Pulse Resp B/P (MAP) Pulse Ox O2 Delivery O2 Flow Rate FiO2 07/08/20 08:55 98.4 124 26 162/71 (101) 99 Room Air Status: unchanged Disposition: ADMITTED INPATIENT Condition: Critical Jonathan Coreas MD Jul 08, 2020 09:13
[2020-07-08] MEDS ORDERED: Insulin Human Regular 100units/ml 3ml IV PRN (09:15)
[2020-07-08] MEDS ORDERED: Insulin Reg 100 units Premix 100 ML IV SCH (09:15)
[2020-07-08] MEDS ORDERED: Insulin Human Regular 100units/ml 3ml IV ONE (09:15)
[2020-07-08] MEDS ORDERED: METFORMIN HCL500 M1 ORAL (09:16)
--- NOTE | 2020-07-08 09:24 | NUR ---
ED Nurse Note: Per ermd hold insulin, give zofran and fluids until potassium is back.
--- NOTE | 2020-07-08 09:40 | NUR ---
ED Nurse Note: Urine obtained via urinal bottle.
[2020-07-08 09:48] LABS: ALANINE AMINOTRANSFERASE 39 U/L (12-78); ALBUMIN 3.4 G/DL (3.4-5.0); ALBUMIN/GLOBULIN RATIO 0.9 (1.0-2.7); ALKALINE PHOSPHATASE 189 U/L (46-116); ANION GAP 32 mmol/L (5-15); ASPARTATE AMINO TRANSFERASE 29 U/L (15-37); BILIRUBIN,TOTAL 0.6 MG/DL (0.2-1.0); BLOOD UREA NITROGEN 64 mg/dL (7-18); CHLORIDE 88 MMOL/L (98-107); HEMATOCRIT 46.1 % (42.0-52.0); HEMOGLOBIN 13.4 G/DL (14.2-18.0); MEAN CORPUSCULAR VOLUME 105 FL (80-99); PLATELET COUNT 320 K/UL (150-450); POTASSIUM 5.8 MMOL/L (3.5-5.1); RED BLOOD COUNT 4.39 M/UL (4.70-6.10); RED CELL DISTRIBUTION WIDTH 13.1 % (11.6-14.8); SODIUM 125 MMOL/L (136-145); WHITE BLOOD COUNT 21.9 K/UL (4.8-10.8)
[2020-07-08] MEDS ORDERED: Metoclopramide 10mg/2ml Inj ONE (09:48)
--- NOTE | 2020-07-08 09:50 | NUR ---
ED Nurse Note: Informed ermd, pt is still vomiting after zofran reassesment.
[2020-07-08] MEDS ORDERED: Metoclopramide 10mg/2ml Inj IVP ONE (10:00)
[2020-07-08 10:06] LABS: CARBON DIOXIDE 5 MMOL/L (21-32)
[2020-07-08 10:19] LABS: APPEARANCE,URINE CLEAR; BILIRUBIN, URINE NEGATIVE (NEGATIVE); COLOR,URINE PALE YELLOW; GLUCOSE, URINE (UA) 4+ (NEGATIVE); KETONES,URINE 3+ (NEGATIVE); LEUKOCYTE ESTERASE ,URINE NEGATIVE (NEGATIVE); NITRITE,URINE NEGATIVE (NEGATIVE); PH,URINE 5 (4.5-8.0); PROTEIN,URINE 4+ (NEGATIVE); UROBILINOGEN,URINE NORMAL MG/DL (0.0-1.0)
--- NOTE | 2020-07-08 10:25 | NUR ---
ED Nurse Note: XRAY COMPLETED.
--- NOTE | 2020-07-08 10:30 | Diagnostic Imaging Report ---
EXAM: XR Chest, 1 View CLINICAL HISTORY: SOB TECHNIQUE: Frontal view of the chest. COMPARISON: No relevant prior studies available. FINDINGS: Lungs: Unremarkable. No consolidation. Pleural space: Unremarkable. No pneumothorax. Heart: Unremarkable. No cardiomegaly. Mediastinum: Unremarkable. Bones/joints: Unremarkable. IMPRESSION: No focal infiltrate.
--- NOTE | 2020-07-08 10:50 | NUR ---
ED Nurse Note: Pt had small watery light brown stool and defecated on self. Pt was cleaned, clothes placed in belongings bag, linens replaced. pt placed onto large chux.
--- NOTE | 2020-07-08 11:03 | NUR ---
ED Nurse Note: Nausea and vomiting ceased after administratino of reglan. pt appears comfortable and asleep in bed. additional warm blankets were provided and lights dimmed to increase pt comfort.
--- NOTE | 2020-07-08 11:05 | NUR ---
ED Nurse Note: DR. KENNEY AT BEDSIDE. PER DR. KENNEY VERBAL ORDER, CONSULT DR. GURROLA FOR ALL DIABETES RELATED ORDERS.
--- NOTE | 2020-07-08 11:15 | NUR ---
ED Nurse Note: ACCUCHECK REASSESSED STILL READS HIGH ON GLUCOMETER. INFORMED ERMD.
--- NOTE | 2020-07-08 12:45 | NUR ---
ED Nurse Note: Per ermd if glucose still reads redraw BMP.
--- NOTE | 2020-07-08 12:55 | NUR ---
ED Nurse Note: Order for repeat BMP placed per verbal order of ERMD, Repeat BMP sent to lab.
--- NOTE | 2020-07-08 13:09 | NUR ---
ED Nurse Note: Dr. Riley at bedside.
--- NOTE | 2020-07-08 13:25 | Consultation ---
Consult Note Consult Note I am asked to evaluate the patient at the request of for renal failure Patient seen in the emergency room, discussed with RN Patient is a 39-year-old male presents for increased generalized weakness as well as elevated blood sugar. Had increased epigastric pain associated vomiting and diarrhea. Reports having prior history of type 1 diabetes. States he ran out of his short acting insulin. Continue to take a long-acting insulin. Den ies any fever. States he is had recent negative coronavirus testing. Multiple episodes of nonbloody emesis. Had previously had occasional episodes of diabetic ketoacidosis. Denies any prior history of heart attack or coronary disease. Patient is currently staying at a transitional housing unit. Patient reports having increased thirst as well as increased urination. Blood sugar had tested "high" when brought in by EMS. 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 COVID-19 Screening: Negative COVID-19 COVID-19 Testing Source: 1 week ago Past Medical History: No History, Except For Hx Hypertension: Yes Hx Diabetes: Yes Vital Signs Date Time Temp Pulse Resp B/P (MAP) Pulse Ox O2 Delivery O2 Flow Rate FiO2 07/08/20 08:55 98.4 124 26 162/71 (101) 99 Room Air Assessment/Plan 39-year-old presents with DKA Acute renal failure Underlying chronic kidney disease Insulin-dependent diabetes mellitus Severe electrolyte abnormalities mainly related to severe hyperglycemia Blood sugar control Per Endo IV hydration Monitor renal parameters Kidney ultrasound Urine studies Per orders Santi Riley MD Jul 08, 2020 13:25
[2020-07-08 13:36] LABS: CALCIUM 7.6 MG/DL (8.5-10.1); CREATININE 3.6 MG/DL (0.55-1.30); POTASSIUM 4.6 MMOL/L (3.5-5.1)
--- NOTE | 2020-07-08 13:59 | NUR ---
ED Nurse Note: Informed ermd about glucose BMP, per verbal order titrate insulin drip to 7mls/hr
--- NOTE | 2020-07-08 14:36 | NUR ---
ED Nurse Note: Dr. Rubio is covering Dr. Dowling Spoke with Dr. Rubio via telephone:
--- NOTE | 2020-07-08 14:38 | NUR ---
ED Nurse Note: Will inform ERMD that Dr. Rubio is concerned of carbon dioxide, need order of bicarb
[2020-07-08] MEDS ORDERED: Sodium Bicarbonate 50ml Carp IV ONE (15:00)
--- NOTE | 2020-07-08 15:03 | Diagnostic Imaging Report ---
EXAM: US Retroperitoneal Limited, Renal CLINICAL HISTORY: RENAL-A TECHNIQUE: Real-time limited ultrasound of the retroperitoneum with image documentation. COMPARISON: None FINDINGS: Right kidney: Mild right hydronephrosis. No definite stone identified. Right kidney measures 9.6 cm in length. Left kidney: Left kidney measures 8.9 cm in length. No hydronephrosis or stone. Bladder: Distended bladder. No significant bladder wall thickening or luminal abnormality. IMPRESSION: Mild right hydronephrosis. No definite stone identified. Distended bladder.
--- NOTE | 2020-07-08 15:36 | NUR ---
ED Nurse Note: Pt is in bed asleep, VSS, no acute distress noted at this time. pt phone was charged so he can call family.
--- NOTE | 2020-07-08 16:29 | NUR ---
ED Nurse Note: Pt urinated 50cc in urinal bottle.
--- NOTE | 2020-07-08 17:15 | NUR ---
ED Nurse Note: Rechecked accucheck, pt glucose 399.
--- NOTE | 2020-07-08 18:01 | NUR ---
ED Nurse Note: Pt urinated an additional 40 cc in urinal bottle.
--- NOTE | 2020-07-08 18:13 | NUR ---
ED Nurse Note: telephone report given to CHARI Newman for continuity of care.
--- NOTE | 2020-07-08 18:14 | History and Physical Report ---
DATE OF ADMISSION: 07/08/2020 HISTORY OF PRESENT ILLNESS: The patient comes in, a 39-year-old male, because of weakness, vomiting, diarrhea, and abdominal cramps for about 3 days. Sugar was over a 1000. Patient is admitted to the ICU for DKA. I saw the patient at the emergency room. The patient was on insulin drip. There is no ICU bed at this point. Patient is very dehydrated and also had elevated blood pressure and tachycardia due to DKA. The patient was sleeping, however, easily arousable. The patient states that he forgot to give himself the insulin injection and he takes about 50 units of long-acting insulin a day. The patient also has diarrhea as well. The patient has history of marijuana use. Feels very weak. Denies respiratory symptoms. Denies shortness of breath. Denies wheezing. Denies any coughing. PAST MEDICAL HISTORY: Does have history of DKA in the past, type 1 diabetes. PAST SURGICAL HISTORY: None. FAMILY HISTORY: Does have history of diabetes. SOCIAL HISTORY: He has history of marijuana use. No history of smoking. No history of drug abuse. MEDICATIONS: Takes Lantus 50 units daily. REVIEW OF SYSTEMS: HEENT: Denies headaches. RESPIRATORY: Denies shortness of breath. Denies cough. CARDIOVASCULAR: Denies chest pain. He does have palpitation. GASTROINTESTINAL: Reports nausea, vomiting, abdominal pain, and diarrhea for about 3 days. EXTREMITIES: Denies pain in lower extremities. CENTRAL NERVOUS SYSTEM: Denies change in speech pattern, however, feels very weak. PHYSICAL EXAMINATION: VITAL SIGNS: Temperature 97.2, pulse is 100, blood pressure is 110/62. HEENT: PERRLA. NECK: Supple. CHEST: Clear to auscultation. CARDIOVASCULAR: Tachycardic. No murmurs. GASTROINTESTINAL: Diffuse tenderness; however, abdomen is very soft, not in any acute distress. No organomegaly. Positive bowel sounds. EXTREMITIES: No edema. He is able to move all 4 extremities. Has generalized weakness. Reflexes in both sides. LABORATORY DATA: Significant for sugar of 1779, bicarb of 5, anion gap of 32. EKG shows sinus tachycardia. ASSESSMENT AND PLAN: DKA, on insulin drip, tachycardia, and dehydration, really dry, vomiting, abdominal pain. The patient is going to the ICU and currently no ICU bed, but I have consulted Dr. Riley, Dr. Dowling, Dr. Mc, and Dr. Leon Perdomo already to help with the management of DKA as well as for the leukocytosis as well as for fluid management. Kendy Moran M.D. DR: KATHY JOB#: [id number] CC:
--- NOTE | 2020-07-08 18:19 | NUR ---
ED Nurse Note: Pending admission packet then will send pt up to 246-D.
--- NOTE | 2020-07-08 18:30 | NUR ---
TRANSFER TO FLOOR: Patient transferred to ICU as ordered, per ERMD. Report given to CHARI Newman. Belongings given to pt. Pt to call family.
--- NOTE | 2020-07-08 18:40 | NUR ---
NURSE NOTES: Patient received from ED. Patient AOx4 with no complaints of pain and no s/sx of distress. RR even and unlabored on RA. [place] RR, shallow and diminished. Cardiac sounds benign. ST on property assessment monitor. BL radial and pedal pulses present with no edema. Bowel sounds present with last BM reported in ED. Reports no issues voiding. Urinal at bedside. BL 20g AC with Insulin drip at 7units infusing to LT. Side rails upx2, call light within reach, bed low and locked, bed alarm on.
--- NOTE | 2020-07-08 19:30 | NUR ---
NURSE NOTES: Received Pt with Dx DKA , AOx4 appeared fatigue, on Insulin drip at 7u/hr infusing to left AC, site atraumatic. SR-ST low 100s on the monitor. Bp stable afebrile. On room air, 02 sat 100%. NO SOB noted. Will continue to monitor.
--- NOTE | 2020-07-08 19:30 | NUR ---
NURSE HAND-OFF REPORT: Latest Vital Signs: Temperature 98.1 , Pulse 104 , B/P 143 /67 , Respiratory Rate 16 , O2 SAT 99 , Room Air, O2 Flow Rate . Vital Sign Comment: STABLE EKG Rhythm: Sinus Tachycardia Rhythm change?: MD Notified?: - MD Response: Latest Mc Fall Score: Fall Risk: Safety Measures: Call light , Bed Alarm , Side Rails , Bed position . Fall Precautions: Report given to Leela MARCELINO. Patient stable. Plan of care endorsed. Admission for fast food shift lead.
--- NOTE | 2020-07-08 20:30 | NUR ---
NURSE NOTES: Blood sugar checked 278. Pt was asymptomatic. Will continue to monitor,
[2020-07-08] MEDS ORDERED: Levemir Flexpen SUBQ SCH (21:00)
--- NOTE | 2020-07-08 21:00 | NUR ---
NURSE NOTES: Dr Rubio called, and inquiring about the pt. Updated MD with pts condition with orders given and carried out. Pls see orders.
[2020-07-08] MEDS: NovoLOG Insulin Flexpen SUBQ SCH (21:08)
[2020-07-08] MEDS: Tamsulosin 0.4mg cap ORAL SCH (21:10)
--- NOTE | 2020-07-08 23:45 | NUR ---
NURSE NOTES: Called DR Mc and inform MD that pt was c/o cp midchest scale of 6 aching pain. 12 lead EKG was done and showed to md the result, Sinus tachycardia, low 100s Bp stable. No orders given.
[2020-07-09] VITALS (24 sets, daily range): BP systolic 118–183; BP diastolic 57–82
[2020-07-09] MEDS: NovoLOG Insulin Flexpen SUBQ SCH ×8 (01:00→23:39)
[2020-07-09] MEDS: traMADol 50mg tab ORAL PRN ×2 (01:29→18:19)
--- NOTE | 2020-07-09 01:29 | NUR ---
NURSE NOTES: Pt complained of midchest aching pain scale of 6, tramadol. HCL 50mg PO was given. per DR Persaud order.
--- NOTE | 2020-07-09 02:00 | NUR ---
NURSE NOTES: Pain free at this time. Seen pt sleeping . VSS afebrile.
--- NOTE | 2020-07-09 04:00 | NUR ---
NURSE NOTES: Vopiding well per urinal. Pt stating that she felt better at this time.
--- NOTE | 2020-07-09 04:54 | NUR ---
NURSE NOTES: MD Eid called and this time. Wants sliding scale to be changed to QID and ACHS. Orders read back and confirmed by
--- NOTE | 2020-07-09 05:18 | NUR ---
NURSE NOTES: Complete bath with bed changed was done.
[2020-07-09] MEDS ORDERED: NovoLOG Insulin Flexpen SUBQ SCH (06:00)
--- NOTE | 2020-07-09 06:30 | NUR ---
NURSE NOTES: Blood sugar 41, 120ml orange juice was given (non sugar free) . will re check BS in 15min.
--- NOTE | 2020-07-09 06:45 | NUR ---
NURSE NOTES: Blood sugar check 95mg/dl. Will continue to monitor.
--- NOTE | 2020-07-09 07:15 | Consultation ---
DATE OF CONSULTATION: 07/08/2020 NOTE: POOR AUDIO CONSULTING PHYSICIAN: Tian Rubio M.D. REFERRING PHYSICIAN: Kendy Moran M.D. REASON FOR CONSULTATION: seizures medications for two days, but did not make any medicine . FAMILY HISTORY: Unremarkable. PERSONAL HISTORY: Unremarkable. REVIEW OF SYSTEMS: Unremarkable. PHYSICAL EXAMINATION: GENERAL: The patient is in no acute distress. VITAL SIGNS: Blood pressure 124/65, pulse 70, respiratory rate , temperature . HEAD AND NECK: Unremarkable. No jugular venous distention. LUNGS: Clear. HEART: Heart sounds regular. ABDOMEN: Soft. Bowel sounds present. EXTREMITIES: No edema. NEUROLOGIC: Cranial nerves II through XII are grossly intact with toes downgoing to plantar stimulation. LABORATORY DATA: Glucose . ASSESSMENT: . Tian Rubio M.D. DR: EFRA JOB#: [id number] CC:
--- NOTE | 2020-07-09 07:31 | NUR ---
NURSE HAND-OFF REPORT: Latest Vital Signs: Temperature 99.2 , Pulse 108 , B/P 183 /78 , Respiratory Rate 17 , O2 SAT 100 , Room Air, O2 Flow Rate . Vital Sign Comment: EKG Rhythm: Sinus Tachycardia Rhythm change?: N MD Notified?: - MD Response: Latest Mc Fall Score: 35 Fall Risk: Medium Risk Safety Measures: Call light Within Reach, Bed Alarm Zone 1, Side Rails Side Rails x3, Bed position Low and Locked. Fall Precautions: Yellow Socks Yellow Gown Door Sign Patient Fall Education Report given to .August MARCELINO
--- NOTE | 2020-07-09 07:34 | NUR ---
NURSE NOTES: Dr. Mc conducting round and updated on patient condition. no orders given at this time. last troponin resulted at 0.088.
[2020-07-09] MEDS ORDERED: Nitroglycerin Subl 0.4mg tab SL PRN (07:45)
[2020-07-09] MEDS: Tamsulosin 0.4mg cap ORAL SCH ×2 (08:45→18:18)
[2020-07-09 09:00] LABS: MEAN CORPUSCULAR VOLUME 91 FL (80-99); PLATELET COUNT 261 K/UL (150-450); RED BLOOD COUNT 3.95 M/UL (4.70-6.10); RED CELL DISTRIBUTION WIDTH 12.5 % (11.6-14.8)
[2020-07-09] MEDS ORDERED: Losartan 25mg tab ORAL SCH (09:00)
[2020-07-09 09:01] LABS: WHITE BLOOD COUNT 22.8 K/UL (4.8-10.8)
[2020-07-09 09:46] LABS: ALBUMIN 2.5 G/DL (3.4-5.0); ALBUMIN/GLOBULIN RATIO 0.7 (1.0-2.7); BILIRUBIN,TOTAL 0.3 MG/DL (0.2-1.0); CREATININE 3.2 MG/DL (0.55-1.30); PHOSPHORUS 3.3 MG/DL (2.5-4.9); POTASSIUM 3.4 MMOL/L (3.5-5.1)
--- NOTE | 2020-07-09 10:30 | NUR ---
NURSE NOTES: Dr. Torrey Perdomo is at the bedside assessing patient. informed WBC count increased to 22.8 with no temperature. no verbal orders given at this time.
--- NOTE | 2020-07-09 10:49 | Cardiac Electrophysiology PN ---
Subjective Subjective [id number] Objective Last 24 Hour Vital Signs Date Time Temp Pulse Resp B/P (MAP) Pulse Ox O2 Delivery O2 Flow Rate FiO2 07/09/20 10:00 102 17 152/74 (100) 99 07/09/20 09:00 100 16 152/74 (100) 100 07/09/20 08:46 162/82 07/09/20 08:46 111 162/82 07/09/20 08:00 98.1 106 16 162/82 (108) 100 07/09/20 08:00 102 07/09/20 08:00 Room Air 07/09/20 07:00 105 9 154/71 (98) 100 07/09/20 06:00 108 17 183/78 (113) 100 07/09/20 05:00 107 18 173/69 (103) 100 07/09/20 04:00 101 07/09/20 04:00 99.2 102 16 121/57 (78) 98 07/09/20 04:00 Room Air 07/09/20 03:00 102 16 118/65 (82) 98 07/09/20 02:00 100 13 124/66 (85) 98 07/09/20 01:00 102 13 131/71 (91) 97 07/09/20 00:00 Room Air 07/09/20 00:00 104 07/09/20 00:00 99.0 98 18 130/66 (87) 96 07/08/20 23:00 103 20 124/65 (84) 98 07/08/20 22:00 102 14 127/68 (87) 99 07/08/20 21:00 103 15 133/62 (85) 97 07/08/20 20:00 105 0 124/64 (84) 98 07/08/20 18:43 98.1 104 16 143/67 99 Room Air 07/08/20 18:40 99.8 107 18 152/66 (94) 99 07/08/20 18:40 Room Air 07/08/20 17:25 98.2 100 15 140/73 100 Room Air 07/08/20 15:13 97.9 106 21 135/63 99 Room Air 07/08/20 13:07 97.9 105 21 125/54 100 Room Air 07/08/20 11:02 97.9 116 21 147/61 100 Room Air Intake and Output 07/08/20 07/09/20 19:00 07:00 Intake Total 4032 ml 720 ml Output Total 780 ml Balance 4032 ml -60 ml Intake Oral 320 ml IV Total 4032 ml 400 ml Output Urine Total 780 ml # Voids 1 4 Laboratory Tests Test 07/08/20 13:10 07/08/20 18:41 07/08/20 20:25 07/09/20 00:57 Sodium Level 130 MMOL/L (136-145) L Potassium Level 4.6 MMOL/L (3.5-5.1) Chloride Level 97 MMOL/L (98-107) L Carbon Dioxide Level 8 MMOL/L (21-32) *L Anion Gap 25 mmol/L (5-15) H Blood Urea Nitrogen 62 mg/dL (7-18) H Creatinine 3.6 MG/DL (0.55-1.30) H Estimat Glomerular Filtration Rate 19.2 mL/min (>60) Glucose Level 847 MG/DL (74-106) #*H Calcium Level 7.6 MG/DL (8.5-10.1) L Phosphorus Level 9.0 MG/DL (2.5-4.9) H POC Whole Blood Glucose 270 MG/DL (74-106) H Pending 128 MG/DL (74-106) H Test 07/09/20 05:31 07/09/20 08:50 Sodium Level 136 MMOL/L (136-145) Potassium Level 3.4 MMOL/L (3.5-5.1) L Chloride Level 105 MMOL/L (98-107) Carbon Dioxide Level 19 MMOL/L (21-32) L Anion Gap 12 mmol/L (5-15) Blood Urea Nitrogen 47 mg/dL (7-18) H Creatinine 3.2 MG/DL (0.55-1.30) H Estimat Glomerular Filtration Rate 22.0 mL/min (>60) Glucose Level 163 MG/DL (74-106) #H Hemoglobin A1c 14.1 % (4.3-6.0) H Uric Acid 7.0 MG/DL (2.6-7.2) Calcium Level 8.0 MG/DL (8.5-10.1) L Phosphorus Level 3.3 MG/DL (2.5-4.9) Magnesium Level 1.8 MG/DL (1.8-2.4) Total Bilirubin 0.3 MG/DL (0.2-1.0) Aspartate Amino Transf (AST/SGOT) 79 U/L (15-37) H Alanine Aminotransferase (ALT/SGPT) 27 U/L (12-78) Alkaline Phosphatase 123 U/L (46-116) H C-Reactive Protein, Quantitative 2.8 mg/dL (0.00-0.90) H Pro-B-Type Natriuretic Peptide Pending Total Protein 5.9 G/DL (6.4-8.2) L Albumin 2.5 G/DL (3.4-5.0) L Globulin 3.4 g/dL Albumin/Globulin Ratio 0.7 (1.0-2.7) L Thyroid Stimulating Hormone (TSH) 2.614 uiU/mL (0.358-3.740) White Blood Count 22.8 K/UL (4.8-10.8) *H Red Blood Count 3.95 M/UL (4.70-6.10) L Hemoglobin 12.0 G/DL (14.2-18.0) L Hematocrit 36.0 % (42.0-52.0) L Mean Corpuscular Volume 91 FL (80-99) # Mean Corpuscular Hemoglobin 30.4 PG (27.0-31.0) Mean Corpuscular Hemoglobin Concent 33.3 G/DL (32.0-36.0) Red Cell Distribution Width 12.5 % (11.6-14.8) Platelet Count 261 K/UL (150-450) Mean Platelet Volume 9.8 FL (6.5-10.1) Neutrophils (%) (Auto) % (45.0-75.0) Lymphocytes (%) (Auto) % (20.0-45.0) Monocytes (%) (Auto) % (1.0-10.0) Eosinophils (%) (Auto) % (0.0-3.0) Basophils (%) (Auto) % (0.0-2.0) Differential Total Cells Counted 100 Neutrophils % (Manual) 89 % (45-75) H Lymphocytes % (Manual) 8 % (20-45) L Monocytes % (Manual) 3 % (1-10) Eosinophils % (Manual) 0 % (0-3) Basophils % (Manual) 0 % (0-2) Band Neutrophils 0 % (0-8) Platelet Estimate Adequate Platelet Morphology Normal Hypochromasia 1+ Microbiology Date/Time Source Procedure Growth Status 07/08/20 10:38 Rectum Received Tyrell Mc MD Jul 09, 2020 10:49
--- NOTE | 2020-07-09 11:30 | NUR ---
Social Work This SW met with patient, currently in the ICU, who remains alert/oriented, independent. Patient explains he lives with his girlfriend and her two children (ages 3 and 7). Patient was recently let go from his job due to the COVID and planning to apply for unemployment. Patient requesting to discharge to home as soon as possible with no other needs or concerns. Patient positive for marijuana, while denying any other substance abuse. Patient has history of mental health concerns: depression and taking antidepressants for this. Patient has Psychiatrist, Dr Castillo that he follows up with at [facility] on [address]. Patient denied any current SI/HI. Patient requesting for his ex-spouse, Erasmo to remain his contact/decision maker @ [phone], as she is the mother of his two children who remain with her. No other needs or concerns present at this time.
--- NOTE | 2020-07-09 12:00 | NUR ---
NURSE NOTES: Dr. Mc called to inform of patient troponin level resulted at 14.294. Left message and awaiting for call back Mr. Hickey is awake and talkative with no symptoms of pain at the chest or chest heaviness, he is breathing with no distress or has shortness of breath, he is saturating at 100% on room air.
--- NOTE | 2020-07-09 12:40 | Nephrology Progress Note ---
Assessment/Plan Problem List: (1) Dehydration (2) GIOVANNI (acute kidney injury) (3) Electrolyte imbalance (4) DKA (diabetic ketoacidoses) (5) Diabetic keto-acidosis Assessment 39-year-old presents with DKA Acute renal failure Underlying chronic kidney disease Insulin-dependent diabetes mellitus Severe electrolyte abnormalities mainly related to severe hyperglycemia Plan July 09: Serum creatinine lowering. Blood sugar better controlled. Abnormal electrolytes addressed. Discussed with RN. Continue per orders. Blood sugar control Per Endo IV hydration Monitor renal parameters Kidney ultrasound Urine studies Per orders Subjective ROS Limited/Unobtainable: No Constitutional: Reports: malaise Objective Objective Last 24 Hour Vital Signs Date Time Temp Pulse Resp B/P (MAP) Pulse Ox O2 Delivery O2 Flow Rate FiO2 07/09/20 10:00 102 17 152/74 (100) 99 07/09/20 09:00 100 16 152/74 (100) 100 07/09/20 08:46 162/82 07/09/20 08:46 111 162/82 07/09/20 08:00 98.1 106 16 162/82 (108) 100 07/09/20 08:00 102 07/09/20 08:00 Room Air 07/09/20 07:00 105 9 154/71 (98) 100 07/09/20 06:00 108 17 183/78 (113) 100 07/09/20 05:00 107 18 173/69 (103) 100 07/09/20 04:00 101 07/09/20 04:00 99.2 102 16 121/57 (78) 98 07/09/20 04:00 Room Air 07/09/20 03:00 102 16 118/65 (82) 98 07/09/20 02:00 100 13 124/66 (85) 98 07/09/20 01:00 102 13 131/71 (91) 97 07/09/20 00:00 Room Air 07/09/20 00:00 104 07/09/20 00:00 99.0 98 18 130/66 (87) 96 07/08/20 23:00 103 20 124/65 (84) 98 07/08/20 22:00 102 14 127/68 (87) 99 07/08/20 21:00 103 15 133/62 (85) 97 07/08/20 20:00 105 0 124/64 (84) 98 07/08/20 18:43 98.1 104 16 143/67 99 Room Air 07/08/20 18:40 99.8 107 18 152/66 (94) 99 07/08/20 18:40 Room Air 07/08/20 17:25 98.2 100 15 140/73 100 Room Air 07/08/20 15:13 97.9 106 21 135/63 99 Room Air 07/08/20 13:07 97.9 105 21 125/54 100 Room Air Intake and Output 07/08/20 07/09/20 19:00 07:00 Intake Total 4032 ml 720 ml Output Total 780 ml Balance 4032 ml -60 ml Intake Oral 320 ml IV Total 4032 ml 400 ml Output Urine Total 780 ml # Voids 1 4 Current Medications Medications (Trade) Dose Ordered Sig/Chris Route PRN Reason Start Time Stop Time Status Last Admin Dose Admin Amlodipine Besylate (Norvasc) 10 mg DAILY ORAL 07/09/20 09:00 08/08/20 08:59 07/09/20 08:46 Atorvastatin Calcium (Lipitor) 10 mg BEDTIME ORAL 07/09/20 21:00 10/07/20 20:59 Clonidine HCl (Catapres Tab) 0.1 mg Q4H PRN ORAL BP over 160 systolic 07/08/20 13:30 10/06/20 13:29 Dextrose (Dextrose 50%) 25 ml Q30M PRN IV Hypoglycemia 07/08/20 20:30 10/06/20 20:29 Dextrose (Dextrose 50%) 50 ml Q30M PRN IV Hypoglycemia 07/08/20 20:30 10/06/20 20:29 Insulin Aspart (NovoLOG) EVERY 6 HOURS SUBQ 07/09/20 06:30 10/06/20 20:59 Insulin Aspart (NovoLOG) 10 units THREE TIMES A DAY SUBQ 07/09/20 09:00 10/07/20 08:59 07/09/20 12:06 Insulin Detemir (Levemir) 50 units Q24H SUBQ 07/08/20 21:00 10/06/20 20:59 07/08/20 21:08 Metoprolol Tartrate (Lopressor) 12.5 mg Q12HR ORAL 07/09/20 21:00 10/07/20 20:59 Nitroglycerin (Ntg) 0.4 mg Q5M PRN SL Prn Chest Pain 07/09/20 07:45 08/08/20 07:44 Pantoprazole (Protonix) 40 mg EVERY 12 HOURS ORAL 07/08/20 21:00 08/07/20 20:59 07/09/20 08:45 Potassium Chloride (K-Dur) 40 meq ONCE ORAL 07/09/20 11:45 07/09/20 13:00 07/09/20 12:05 Sodium Chloride 1,000 ml @ 100 mls/hr Q10H IV 07/08/20 20:30 08/07/20 20:29 07/09/20 06:28 Tamsulosin HCl (Flomax) 0.4 mg BID ORAL 07/08/20 21:00 08/07/20 20:59 07/09/20 08:45 Tramadol HCl (Ultram) 50 mg Q6H PRN ORAL pain 7-10 07/08/20 23:45 07/15/20 23:44 07/09/20 01:29 Laboratory Tests 07/08/20 13:10: Sodium Level 130L, Potassium Level 4.6, Chloride Level 97L, Carbon Dioxide Level 8*L, Anion Gap 25H, Blood Urea Nitrogen 62H, Creatinine 3.6H, Estimat Glomerular Filtration Rate 19.2, Glucose Level 847#*H, Calcium Level 7.6L, Phosphorus Level 9.0H 07/08/20 18:41: POC Whole Blood Glucose 270H 07/08/20 20:25: POC Whole Blood Glucose [Pending] 07/09/20 00:57: POC Whole Blood Glucose 128H 07/09/20 05:31: Sodium Level 136, Potassium Level 3.4L, Chloride Level 105, Carbon Dioxide Level 19L, Anion Gap 12, Blood Urea Nitrogen 47H, Creatinine 3.2H, Estimat Glomerular Filtration Rate 22.0, Glucose Level 163#H, Hemoglobin A1c 14.1H, Uric Acid 7.0, Calcium Level 8.0L, Phosphorus Level 3.3, Magnesium Level 1.8, Total Bilirubin 0.3, Aspartate Amino Transf (AST/SGOT) 79H, Alanine Aminotransferase (ALT/SGPT) 27, Alkaline Phosphatase 123H, C-Reactive Protein, Quantitative 2.8H, Pro-B-Type Natriuretic Peptide 5502H, Total Protein 5.9L, Albumin 2.5L, Globulin 3.4, Albumin/Globulin Ratio 0.7L, Thyroid Stimulating Hormone (TSH) 2.614 07/09/20 08:50: White Blood Count 22.8*H, Red Blood Count 3.95L, Hemoglobin 12.0L, Hematocrit 36.0L, Mean Corpuscular Volume 91#, Mean Corpuscular Hemoglobin 30.4, Mean Corpuscular Hemoglobin Concent 33.3, Red Cell Distribution Width 12.5, Platelet Count 261, Mean Platelet Volume 9.8, Neutrophils (%) (Auto) , Lymphocytes (%) (Auto) , Monocytes (%) (Auto) , Eosinophils (%) (Auto) , Basophils (%) (Auto) , Differential Total Cells Counted 100, Neutrophils % (Manual) 89H, Lymphocytes % (Manual) 8L, Monocytes % (Manual) 3, Eosinophils % (Manual) 0, Basophils % (Manual) 0, Band Neutrophils 0, Platelet Estimate Adequate, Platelet Morphology Normal, Hypochromasia 1+ 07/09/20 10:55: Troponin I 14.294H 07/09/20 11:46: POC Whole Blood Glucose 130H Height (Feet): 5 Height (Inches): 7.00 Weight (Pounds): 160 General Appearance: no apparent distress Cardiovascular: tachycardia Respiratory/Chest: decreased breath sounds Abdomen: distended Santi Riley MD Jul 09, 2020 12:40
--- NOTE | 2020-07-09 13:00 | NUR ---
NURSE NOTES: Dr. Mc called to order heparin drip to be started per pharmacy dose. Mr. Hickey remains awake and talkative with no chest pain or discomfort. he remains saturating at 99-100%. he continues to received ns at 100ml/hr.
[2020-07-09] MEDS ORDERED: Heparin 25,000u/D5W 500ml 500 ML IV SCH ×2 (14:03→21:00)
--- NOTE | 2020-07-09 14:20 | NUR ---
NURSE NOTES: Heparin drip started at 12 units/kg/hr at rate of 17.418ml/hr. new IV started on the left hand 20G on first attempt. blood return is present with no swelling or oozing at the insertion site. patient is comfortable in bed with meal tray and eating lunch, he is able to communicate with his family using his cellular phone, PTT lab sample collected and sent to laboratory.
[2020-07-09 14:28] LABS: HEMATOCRIT 33.2 % (42.0-52.0); HEMOGLOBIN 11.1 G/DL (14.2-18.0); MEAN CORPUSCULAR VOLUME 91 FL (80-99); PLATELET COUNT 229 K/UL (150-450); RED BLOOD COUNT 3.64 M/UL (4.70-6.10); RED CELL DISTRIBUTION WIDTH 12.4 % (11.6-14.8); WHITE BLOOD COUNT 18.2 K/UL (4.8-10.8)
--- NOTE | 2020-07-09 14:44 | Consultation ---
DATE OF CONSULTATION: 07/09/2020 INFECTIOUS DISEASE CONSULT PRIMARY ATTENDING PHYSICIAN: Kendy Moran MD REASON FOR CONSULT: Leukocytosis. HISTORY OF PRESENT ILLNESS: This is a 39-year-old male admitted yesterday from home because of weakness and diabetes mellitus type 1 with DKA. Recently, he ran out of long-acting insulin. He had epigastric pain, nausea, vomiting, and tachycardia with heart rate of 124 at the time of admission, leukocytosis of 21.9, and acute renal failure, acidosis, and had a blood sugar of 1079 and was admitted to ICU with diabetic ketoacidosis, who was on insulin drip that was discontinued. Currently, he feels better. PAST MEDICAL HISTORY: Diabetes mellitus type 1. Also has history of hypertension. ALLERGIES: No known drug allergies. MEDICATIONS: Metoprolol, atorvastatin, potassium chloride, amlodipine, insulin aspart, tramadol, insulin detemir, Protonix, Flomax, clonidine. SOCIAL HISTORY: Says he is , has 4 kids. Denies alcohol, drug abuse, or smoking. Denies sick contacts. REVIEW OF SYSTEMS: The patient has no complaints at the present time. PHYSICAL EXAMINATION: VITAL SIGNS: Temperature is 98.1, pulse 102, blood pressure 152/74. GENERAL APPEARANCE: Seems to have normal weight. HEAD AND NECK: [place] conjunctivae. HEART: Tachycardic. LUNGS: Clear. ABDOMEN: Soft, nontender. EXTREMITIES: No edema. NEUROLOGIC: He is awake, alert, oriented x3. LABORATORY DATA: WBC 22.8, hemoglobin 12, hematocrit 36, platelets 261, sodium 130, potassium 4.6, chloride 97, bicarb 8, BUN 62, creatinine 3.6. The latest glucose is 130. Troponin is elevated at 14.294. Hemoglobin A1c is elevated at 14.1. The latest BUN is 47, creatinine is 3.2. Chest x-ray showed no infiltrate. Renal ultrasound showed mild right hydronephrosis. No stone or obstruction. IMPRESSION: Leukocytosis and tachycardia, likely secondary to systemic inflammatory response syndrome. The patient has diabetes ketoacidosis in the setting of diabetes type 1, has acute renal failure, elevated troponin, electrolyte abnormality that is improving, right hydronephrosis that is minimal. RECOMMENDATION: Observe off antibiotic. We will follow up CBC. We will follow up cultures. At the end of my exam, I thank Dr. Moran for involving me in the care of this patient. Leon Perdomo M.D. DR: JOELLE JOB#: [id number] CC: JUSTIN
--- NOTE | 2020-07-09 16:00 | Consultation ---
DATE OF CONSULTATION: 07/09/2020 CARDIOLOGY CONSULTATION CONSULTING PHYSICIAN: Tyrell Mc MD REFERRING PHYSICIAN: Kendy Moran MD REASON FOR CONSULTATION: Elevated troponin in a patient with diabetic ketoacidosis. HISTORY OF PRESENT ILLNESS: Patient is a very pleasant 39-year-old gentleman with history of hypertension and diabetes who presented to the emergency room with generalized weakness, elevated blood sugar as well as abdominal pain and vomiting and diarrhea. Patient has history of type 1 diabetes and history of DKA before. Patient had a recent negative coronavirus testing. Patient denies any prior myocardial infarction or coronary artery disease. Yesterday, patient had episodes of chest pain and troponin was elevated. His BP and his blood pressure was also 162 with a pulse of 124. A Cardiology consultation was obtained for further evaluation. REVIEW OF SYSTEMS: Negative other than what was mentioned in the history of present illness. PAST MEDICAL HISTORY: As mentioned above. FAMILY HISTORY: Noncontributory. SOCIAL HISTORY: Denies smoking or drinking alcohol or use drugs. PHYSICAL EXAMINATION: VITAL SIGNS: Show blood pressure 152/74, pulse is 102, respirations 18, and he is afebrile. HEAD AND NECK: Shows no JVD. LUNGS: Coarse rhonchi. CARDIOVASCULAR: Shows regular S1 and S2 with no gallop or murmur. ABDOMEN: Soft. EXTREMITIES: No pitting edema. LABORATORY DATA: His labs show white count of 22.8, hemoglobin 12, hematocrit 36, and platelet count is 261. Sodium 136, potassium 3.4, BUN of 47, creatinine 3.2, and glucose of 163. His troponin was 0.088. His sodium was 130, potassium 4.6, BUN 65, creatinine 3.6. ASSESSMENT AND PLAN: 1. Elevated troponin and chest pain and T-wave inversion in lead I, aVL. We will treat the patient for non-ST elevation myocardial infarction. The troponin elevation may be just due to renal failure as the creatinine was 4. At this time, patient denies any chest pain. I will put him on aspirin and statin and low-dose beta-arnol for cardiac protection. higher dose of beta-arnol in view of patient's brittle diabetes. 2. Hypertension, on amlodipine 10 mg daily and losartan 25 mg daily. 3. Diabetic ketoacidosis, on insulin. 4. Renal failure. Patient was evaluated by Dr. Fouladian. 5. Diabetic ketoacidosis. Follow up by Dr. Rubio. It is of note that patient's echocardiogram showed ejection fraction of 65 to 70%. Thank you very much for allowing me to participate in the care of this patient. Please do not hesitate to contact me for any questions regarding my evaluation. Tyrell Mc M.D. DR: LUCRECIA JOB#: [id number] CC:
--- NOTE | 2020-07-09 16:49 | General Progress Note ---
Subjective ROS Limited/Unobtainable: Yes Allergies: Coded Allergies: No Known Allergies (Unverified , 11/06/15) Objective Last 24 Hour Vital Signs Date Time Temp Pulse Resp B/P (MAP) Pulse Ox O2 Delivery O2 Flow Rate FiO2 07/09/20 16:00 98.4 98 15 122/71 (88) 99 07/09/20 16:00 Room Air 07/09/20 15:00 102 16 128/66 (86) 97 07/09/20 14:00 105 19 143/69 (93) 100 07/09/20 13:00 105 20 148/77 (100) 07/09/20 12:00 100 07/09/20 12:00 Room Air 07/09/20 12:00 98.3 109 19 132/68 (89) 100 07/09/20 11:00 99 15 168/77 (107) 100 07/09/20 10:00 102 17 152/74 (100) 99 07/09/20 09:00 100 16 152/74 (100) 100 07/09/20 08:46 162/82 07/09/20 08:46 111 162/82 07/09/20 08:00 98.1 106 16 162/82 (108) 100 07/09/20 08:00 102 07/09/20 08:00 Room Air 07/09/20 07:00 105 9 154/71 (98) 100 07/09/20 06:00 108 17 183/78 (113) 100 07/09/20 05:00 107 18 173/69 (103) 100 07/09/20 04:00 101 07/09/20 04:00 99.2 102 16 121/57 (78) 98 07/09/20 04:00 Room Air 07/09/20 03:00 102 16 118/65 (82) 98 07/09/20 02:00 100 13 124/66 (85) 98 07/09/20 01:00 102 13 131/71 (91) 97 07/09/20 00:00 Room Air 07/09/20 00:00 104 07/09/20 00:00 99.0 98 18 130/66 (87) 96 07/08/20 23:00 103 20 124/65 (84) 98 07/08/20 22:00 102 14 127/68 (87) 99 07/08/20 21:00 103 15 133/62 (85) 97 07/08/20 20:00 105 0 124/64 (84) 98 07/08/20 18:43 98.1 104 16 143/67 99 Room Air 07/08/20 18:40 99.8 107 18 152/66 (94) 99 07/08/20 18:40 Room Air 07/08/20 17:25 98.2 100 15 140/73 100 Room Air Intake and Output 07/08/20 07/09/20 19:00 07:00 Intake Total 4032 ml 775 ml Output Total 780 ml Balance 4032 ml -5 ml Intake Oral 320 ml IV Total 4032 ml 455 ml Output Urine Total 780 ml # Voids 1 4 Laboratory Tests 07/08/20 18:41: POC Whole Blood Glucose 270H 07/08/20 20:25: POC Whole Blood Glucose [Pending] 07/09/20 00:57: POC Whole Blood Glucose 128H 07/09/20 05:31: Sodium Level 136, Potassium Level 3.4L, Chloride Level 105, Carbon Dioxide Level 19L, Anion Gap 12, Blood Urea Nitrogen 47H, Creatinine 3.2H, Estimat Glomerular Filtration Rate 22.0, Glucose Level 163#H, Hemoglobin A1c 14.1H, Uric Acid 7.0, Calcium Level 8.0L, Phosphorus Level 3.3, Magnesium Level 1.8, Total Bilirubin 0.3, Aspartate Amino Transf (AST/SGOT) 79H, Alanine Aminotransferase (ALT/SGPT) 27, Alkaline Phosphatase 123H, C-Reactive Protein, Quantitative 2.8H, Pro-B-Type Natriuretic Peptide 5502H, Total Protein 5.9L, Albumin 2.5L, Globulin 3.4, Albumin/Globulin Ratio 0.7L, Thyroid Stimulating Hormone (TSH) 2.614 07/09/20 08:50: White Blood Count 22.8*H, Red Blood Count 3.95L, Hemoglobin 12.0L, Hematocrit 36.0L, Mean Corpuscular Volume 91#, Mean Corpuscular Hemoglobin 30.4, Mean Corpuscular Hemoglobin Concent 33.3, Red Cell Distribution Width 12.5, Platelet Count 261, Mean Platelet Volume 9.8, Neutrophils (%) (Auto) , Lymphocytes (%) (Auto) , Monocytes (%) (Auto) , Eosinophils (%) (Auto) , Basophils (%) (Auto) , Differential Total Cells Counted 100, Neutrophils % (Manual) 89H, Lymphocytes % (Manual) 8L, Monocytes % (Manual) 3, Eosinophils % (Manual) 0, Basophils % (Manual) 0, Band Neutrophils 0, Platelet Estimate Adequate, Platelet Morphology Normal, Hypochromasia 1+ 07/09/20 10:55: Troponin I 14.294H 07/09/20 11:46: POC Whole Blood Glucose 130H 07/09/20 13:50: White Blood Count 18.2H, Red Blood Count 3.64L, Hemoglobin 11.1L, Hematocrit 33.2L, Mean Corpuscular Volume 91, Mean Corpuscular Hemoglobin 30.4, Mean Corpuscular Hemoglobin Concent 33.3, Red Cell Distribution Width 12.4, Platelet Count 229, Mean Platelet Volume 9.9, Neutrophils (%) (Auto) , Lymphocytes (%) (Auto) , Monocytes (%) (Auto) , Eosinophils (%) (Auto) , Basophils (%) (Auto) , Differential Total Cells Counted 100, Neutrophils % (Manual) 90H, Lymphocytes % (Manual) 7L, Monocytes % (Manual) 3, Eosinophils % (Manual) 0, Basophils % (Manual) 0, Band Neutrophils 0, Platelet Estimate Adequate, Platelet Morphology Normal, Hypochromasia 1+, Activated Partial Thromboplast Time 24 Height (Feet): 5 Height (Inches): 7.00 Weight (Pounds): 160 Assessment/Plan Problem List: (1) Diabetes mellitus type 1 ICD Codes: E10.9 - Type 1 diabetes mellitus without complications SNOMED: 45849357 (2) Hyperglycemia (3) Diabetic ketoacidosis ICD Codes: E11.10 - Type 2 diabetes mellitus with ketoacidosis without coma SNOMED: 55030776, 835778634 (4) DKA (diabetic ketoacidoses) ICD Codes: E11.10 - Type 2 diabetes mellitus with ketoacidosis without coma SNOMED: 57997013, 841106961 (5) Dehydration ICD Codes: E86.0 - Dehydration SNOMED: 88062831 (6) Electrolyte imbalance ICD Codes: E87.8 - Other disorders of electrolyte and fluid balance, not el sewhere classified SNOMED: 150486206 (7) GIOVANNI (acute kidney injury) ICD Codes: N17.9 - Acute kidney failure, unspecified SNOMED: 6659360, 68843742 Status: progressing Assessment/Plan: dka is improved afebrile sugar is improving abdominal pain and vomitting is improving vitals stable Kendy Moran MD Jul 09, 2020 16:49
--- NOTE | 2020-07-09 17:01 | NUR ---
CASE MANAGEMENT:INITIAL REVIEW 39 YR OLD MALE BIBA FROM HOME CC;ABNORMAL LABS SI;DIABETIC KETOACIDOSIS. TACHYCARDIA. 98.4 124 26 184/67 99% ON RA WBC 21.9 NA 125 K+ 5.8 CL 88 CO2 5 ANION GAP 32 BUN 64 CR 4.0 BG 1079 MAG 2.8 ALP 189 TROP 0.088 UA+ PROTEIN, KETONES, BLOOD, RBC URINE TOX (+) THC CXR ~ NO FOCAL INFILTRATE RENAL US ~ Mild right hydronephrosis. No definite stone identified. Distended bladder. IS;IVF NS BOLUS X3 ZOFRAN IV INSULIN GTT ADMITTED TO ICU ICU STATUS DCP;FROM HOME
--- NOTE | 2020-07-09 17:38 | NUR ---
NURSE NOTES: Heparin drip remains at 12 units/kg/hr at rate of 17.418ml/hr. Left hand IV remains patent with no leaking or swelling noted at insertion site, patient is comfortable and resting in bed, he remains on room air with no distress and saturating at 98-99%. heart rate remains at 106 in sinus tachycardia with no arrhythmias.
--- NOTE | 2020-07-09 18:08 | General Progress Note ---
Subjective Allergies: Coded Allergies: No Known Allergies (Unverified , 11/06/15) All Systems: reviewed and negative except above Subjective events noted interval notes reviewed glucose values improved Item Value Date Time Bedside Blood Glucose 41 mg/dl L 07/09/20 0628 Bedside Blood Glucose 128 mg/dl H 07/09/20 0100 Bedside Blood Glucose 276 mg/dl H 07/08/20 2108 Bedside Blood Glucose 270 mg/dl H 07/08/20 1840 Bedside Blood Glucose Critically High Result 07/08/20 1250 Bedside Blood Glucose Critically High Result 07/08/20 1011 Losartan Potassium 25 mg 07/09/20 0900 (Cozaar) DAILY/ORAL Bedside Blood Glucose 130 mg/dl H 07/09/20 1206 Bedside Blood Glucose 167 mg/dl H 07/09/20 0847 Bedside Blood Glucose 95 mg/dl 07/09/20 0645 Objective Last 24 Hour Vital Signs Date Time Temp Pulse Resp B/P (MAP) Pulse Ox O2 Delivery O2 Flow Rate FiO2 07/09/20 17:00 106 19 141/67 (91) 100 07/09/20 16:00 100 07/09/20 16:00 98.4 98 15 122/71 (88) 99 07/09/20 16:00 Room Air 07/09/20 15:00 102 16 128/66 (86) 97 07/09/20 14:00 105 19 143/69 (93) 100 07/09/20 13:00 105 20 148/77 (100) 07/09/20 12:00 100 07/09/20 12:00 Room Air 07/09/20 12:00 98.3 109 19 132/68 (89) 100 07/09/20 11:00 99 15 168/77 (107) 100 07/09/20 10:00 102 17 152/74 (100) 99 07/09/20 09:00 100 16 152/74 (100) 100 07/09/20 08:46 162/82 07/09/20 08:46 111 162/82 07/09/20 08:00 98.1 106 16 162/82 (108) 100 07/09/20 08:00 102 07/09/20 08:00 Room Air 07/09/20 07:00 105 9 154/71 (98) 100 07/09/20 06:00 108 17 183/78 (113) 100 07/09/20 05:00 107 18 173/69 (103) 100 07/09/20 04:00 101 07/09/20 04:00 99.2 102 16 121/57 (78) 98 07/09/20 04:00 Room Air 07/09/20 03:00 102 16 118/65 (82) 98 07/09/20 02:00 100 13 124/66 (85) 98 07/09/20 01:00 102 13 131/71 (91) 97 07/09/20 00:00 Room Air 07/09/20 00:00 104 07/09/20 00:00 99.0 98 18 130/66 (87) 96 07/08/20 23:00 103 20 124/65 (84) 98 07/08/20 22:00 102 14 127/68 (87) 99 07/08/20 21:00 103 15 133/62 (85) 97 07/08/20 20:00 105 0 124/64 (84) 98 07/08/20 18:43 98.1 104 16 143/67 99 Room Air 07/08/20 18:40 99.8 107 18 152/66 (94) 99 07/08/20 18:40 Room Air Intake and Output 07/08/20 07/09/20 19:00 07:00 Intake Total 4032 ml 775 ml Output Total 780 ml Balance 4032 ml -5 ml Intake Oral 320 ml IV Total 4032 ml 455 ml Output Urine Total 780 ml # Voids 1 4 Laboratory Tests 07/08/20 18:41: POC Whole Blood Glucose 270H 07/08/20 20:25: POC Whole Blood Glucose [Pending] 07/09/20 00:57: POC Whole Blood Glucose 128H 07/09/20 05:31: Sodium Level 136, Potassium Level 3.4L, Chloride Level 105, Carbon Dioxide Level 19L, Anion Gap 12, Blood Urea Nitrogen 47H, Creatinine 3.2H, Estimat Glomerular Filtration Rate 22.0, Glucose Level 163#H, Hemoglobin A1c 14.1H, Uric Acid 7.0, Calcium Level 8.0L, Phosphorus Level 3.3, Magnesium Level 1.8, Total Bilirubin 0.3, Aspartate Amino Transf (AST/SGOT) 79H, Alanine Aminotransferase (ALT/SGPT) 27, Alkaline Phosphatase 123H, C-Reactive Protein, Quantitative 2.8H, Pro-B-Type Natriuretic Peptide 5502H, Total Protein 5.9L, Albumin 2.5L, Globulin 3.4, Albumin/Globulin Ratio 0.7L, Thyroid Stimulating Hormone (TSH) 2.614 07/09/20 08:50: White Blood Count 22.8*H, Red Blood Count 3.95L, Hemoglobin 12.0L, Hematocrit 36.0L, Mean Corpuscular Volume 91#, Mean Corpuscular Hemoglobin 30.4, Mean Corpuscular Hemoglobin Concent 33.3, Red Cell Distribution Width 12.5, Platelet Count 261, Mean Platelet Volume 9.8, Neutrophils (%) (Auto) , Lymphocytes (%) (Auto) , Monocytes (%) (Auto) , Eosinophils (%) (Auto) , Basophils (%) (Auto) , Differential Total Cells Counted 100, Neutrophils % (Manual) 89H, Lymphocytes % (Manual) 8L, Monocytes % (Manual) 3, Eosinophils % (Manual) 0, Basophils % (Manual) 0, Band Neutrophils 0, Platelet Estimate Adequate, Platelet Morphology Normal, Hypochromasia 1+ 07/09/20 10:55: Troponin I 14.294H 07/09/20 11:46: POC Whole Blood Glucose 130H 07/09/20 13:50: White Blood Count 18.2H, Red Blood Count 3.64L, Hemoglobin 11.1L, Hematocrit 33.2L, Mean Corpuscular Volume 91, Mean Corpuscular Hemoglobin 30.4, Mean Corpuscular Hemoglobin Concent 33.3, Red Cell Distribution Width 12.4, Platelet Count 229, Mean Platelet Volume 9.9, Neutrophils (%) (Auto) , Lymphocytes (%) (Auto) , Monocytes (%) (Auto) , Eosinophils (%) (Auto) , Basophils (%) (Auto) , Differential Total Cells Counted 100, Neutrophils % (Manual) 90H, Lymphocytes % (Manual) 7L, Monocytes % (Manual) 3, Eosinophils % (Manual) 0, Basophils % (Manual) 0, Band Neutrophils 0, Platelet Estimate Adequate, Platelet Morphology Normal, Hypochromasia 1+, Activated Partial Thromboplast Time 24 Height (Feet): 5 Height (Inches): 7.00 Weight (Pounds): 160 General Appearance: no apparent distress Cardiovascular: normal rate Respiratory/Chest: lungs clear Abdomen: normal bowel sounds Pelvis: normal external exam Objective Current Medications Medications (Trade) Dose Ordered Sig/Chris Route PRN Reason Start Time Stop Time Status Last Admin Dose Admin Amlodipine Besylate (Norvasc) 10 mg DAILY ORAL 07/09/20 09:00 08/08/20 08:59 07/09/20 08:46 Atorvastatin Calcium (Lipitor) 10 mg BEDTIME ORAL 07/09/20 21:00 10/07/20 20:59 Clonidine HCl (Catapres Tab) 0.1 mg Q4H PRN ORAL BP over 160 systolic 07/08/20 13:30 10/06/20 13:29 Dextrose (Dextrose 50%) 25 ml Q30M PRN IV Hypoglycemia 07/08/20 20:30 10/06/20 20:29 Dextrose (Dextrose 50%) 50 ml Q30M PRN IV Hypoglycemia 07/08/20 20:30 10/06/20 20:29 Heparin Sodium/ Dextrose 500 ml @ 17.418 mls/ hr ADJUST PER PROTOCOL IV 07/09/20 14:03 08/08/20 14:02 07/09/20 14:19 Insulin Aspart (NovoLOG) EVERY 6 HOURS SUBQ 07/09/20 06:30 10/06/20 20:59 Insulin Aspart (NovoLOG) 10 units THREE TIMES A DAY SUBQ 07/09/20 09:00 10/07/20 08:59 07/09/20 12:06 Insulin Detemir (Levemir) 50 units Q24H SUBQ 07/08/20 21:00 10/06/20 20:59 07/08/20 21:08 Metoprolol Tartrate (Lopressor) 12.5 mg Q12HR ORAL 07/09/20 21:00 10/07/20 20:59 Nitroglycerin (Ntg) 0.4 mg Q5M PRN SL Prn Chest Pain 07/09/20 07:45 08/08/20 07:44 Pantoprazole (Protonix) 40 mg EVERY 12 HOURS ORAL 07/08/20 21:00 08/07/20 20:59 07/09/20 08:45 Sodium Chloride 1,000 ml @ 100 mls/hr Q10H IV 07/08/20 20:30 08/07/20 20:29 07/09/20 06:28 Tamsulosin HCl (Flomax) 0.4 mg BID ORAL 07/08/20 21:00 08/07/20 20:59 07/09/20 08:45 Tramadol HCl (Ultram) 50 mg Q6H PRN ORAL pain 7-10 07/08/20 23:45 07/15/20 23:44 07/09/20 01:29 Assessment/Plan Problem List: (1) Diabetes mellitus type 1 (2) Diabetic keto-acidosis ICD Codes: E11.10 - Type 2 diabetes mellitus with ketoacidosis without coma SNOMED: 959239446, [id number] Status: progressing Assessment/Plan: reduce Levemir to 40 units qhs continue Novolog 10 units ac tid + SSI Dallas Dowling MD Jul 09, 2020 18:08
--- NOTE | 2020-07-09 20:46 | NUR ---
NURSE NOTES: Dr. Mc aware of patient troponin level decrease to 8.217. monitor troponin in morning blood draw, no further orders given at this time.
[2020-07-09] MEDS ORDERED: Heparin 5000 units/ml inj IV SCH (21:00)
[2020-07-09] MEDS ORDERED: Levemir Flexpen SUBQ SCH (21:00)
[2020-07-09] MEDS: Metoprolol Tartrate 12.5mg TAB ORAL SCH (21:21)
--- NOTE | 2020-07-09 22:30 | NUR ---
NURSE NOTES: Received patient from CHARI Koch. Patient is awake, alert and oriented x4. On room air; showing no signs of pain or distress. On a CCHO medium diet with minimal appetite. Urinal and commode at bedside. Call light within reach, reminded patient not to get out of bed and to use the call light for assistance. Left A/C 18g saline locked, left hand 20g running NS @ 100ml/hr and Heparin drip @ 16units/kg/hr. Next timed PTT scheduled for 07/10 0300. Safety measures in place; bed low, locked and alarm is on. Will continue plan of care.
--- NOTE | 2020-07-09 22:30 | NUR ---
NURSE HAND-OFF REPORT: Latest Vital Signs: Temperature 98.4 , Pulse 92 , B/P 132 /68 , Respiratory Rate 18 , O2 SAT 96 , Room Air, O2 Flow Rate . Vital Sign Comment: EKG Rhythm: Sinus Rhythm Rhythm change?: N MD Notified?: - MD Response: Latest Mc Fall Score: 35 Fall Risk: Medium Risk Safety Measures: Call light Within Reach, Bed Alarm Zone 1, Side Rails Side Rails x3, Bed position Low and Locked. Fall Precautions: Yellow Socks Yellow Gown Patient Fall Education Report given to CHARI Casanova. endorsed to nurse heparin drip was changed to 16units/kg/hr and next PTT is at 0300 on 07/10/20.
[2020-07-09] MEDS ORDERED: Morphine Sulfate 2mg/ml Inj(IV/IM USE ONLY) IVP PRN (23:15)
[2020-07-10] VITALS (12 sets, daily range): BP systolic 110–179; BP diastolic 62–86
--- NOTE | 2020-07-10 | NUR ---
NURSE NOTES: Patient complaints of upper mid back pain that radiated to the neck area. Tramadol PRN q6hr is not effective; patient states it only helps for 20mins. Patient states that he is restless and a bit agitated due to the pain and being confined in a small room with alot of wires hooked up. Informed Dr. Nelson. Morphine 2mg IV ordered and given for severe upper back pain of 7/10. Patient is now resting comfortably; vital signs stable. Will continue to monitor.
--- NOTE | 2020-07-10 02:00 | NUR ---
NURSE NOTES: Patient is resting comfortably. All needs are met. Vital signs stable. BP:110/67 HR:85, O2sat:97% on room air.
--- NOTE | 2020-07-10 02:35 | NUR ---
NURSE NOTES: Patient concerned about his blood sugar and ask to check. Resulted 86. Water and pillows given as requested. Patient is comfortable.
[2020-07-10 03:44] LABS: BASOPHILS % (AUTO) 0.8 % (0.0-2.0); EOSINOPHILS % (AUTO) 0.4 % (0.0-3.0); HEMATOCRIT 33.2 % (42.0-52.0); HEMOGLOBIN 10.9 G/DL (14.2-18.0); LYMPHOCYTES % (AUTO) 14.7 % (20.0-45.0); MEAN CORPUSCULAR VOLUME 92 FL (80-99); MONOCYTES % (AUTO) 7.3 % (1.0-10.0); NEUTROPHILS % (AUTO) 76.9 % (45.0-75.0); PLATELET COUNT 222 K/UL (150-450); RED BLOOD COUNT 3.62 M/UL (4.70-6.10); RED CELL DISTRIBUTION WIDTH 12.6 % (11.6-14.8); WHITE BLOOD COUNT 11.8 K/UL (4.8-10.8)
[2020-07-10 04:05] LABS: PHOSPHORUS 2.9 MG/DL (2.5-4.9)
[2020-07-10 04:11] LABS: ALANINE AMINOTRANSFERASE 30 U/L (12-78); ALBUMIN 2.4 G/DL (3.4-5.0); ALBUMIN/GLOBULIN RATIO 0.7 (1.0-2.7); ALKALINE PHOSPHATASE 116 U/L (46-116); ANION GAP 8 mmol/L (5-15); ASPARTATE AMINO TRANSFERASE 45 U/L (15-37); BILIRUBIN,TOTAL 0.4 MG/DL (0.2-1.0); BLOOD UREA NITROGEN 33 mg/dL (7-18); CALCIUM 8.1 MG/DL (8.5-10.1); CARBON DIOXIDE 23 MMOL/L (21-32); CHLORIDE 106 MMOL/L (98-107); CHOLESTEROL 180 MG/DL (< 200); CREATININE 2.7 MG/DL (0.55-1.30); HDL CHOLESTEROL 60 MG/DL (40-60); POTASSIUM 3.5 MMOL/L (3.5-5.1); SODIUM 136 MMOL/L (136-145); TRIGLYCERIDES 99 MG/DL (30-150)
--- NOTE | 2020-07-10 05:00 | NUR ---
NURSE NOTES: Patient became concern with his blood sugar; resulted 52, orange juice given and andres re-check in 15min.
--- NOTE | 2020-07-10 05:15 | NUR ---
NURSE NOTES: B/S reassessed, resulting 80. Patient insisted to have another orange juice.
[2020-07-10] MEDS: NovoLOG Insulin Flexpen SUBQ SCH ×4 (05:43→12:53)
--- NOTE | 2020-07-10 06:00 | NUR ---
NURSE NOTES: EKG done and placed into chart. Assisted bed bath, linens changed. Patient is comfortable.
--- NOTE | 2020-07-10 06:31 | General Progress Note ---
Subjective Allergies: Coded Allergies: No Known Allergies (Unverified , 11/06/15) All Systems: reviewed and negative except above Subjective events noted interval notes reviewed hypoglycemic this morning despite lower Levemir dosage from 50 to 40 u Item Value Date Time Bedside Blood Glucose 80 mg/dl 07/10/20 0543 Bedside Blood Glucose 168 mg/dl H 07/10/20 0000 Bedside Blood Glucose 109 mg/dl 07/09/20 2124 Bedside Blood Glucose 115 mg/dl 07/09/20 1821 Bedside Blood Glucose 130 mg/dl H 07/09/20 1206 Bedside Blood Glucose 167 mg/dl H 07/09/20 0847 Bedside Blood Glucose 95 mg/dl 07/09/20 0645 Objective Last 24 Hour Vital Signs Date Time Temp Pulse Resp B/P (MAP) Pulse Ox O2 Delivery O2 Flow Rate FiO2 07/10/20 06:00 94 13 160/80 (106) 100 07/10/20 05:00 98.2 98 15 162/72 (102) 100 07/10/20 04:00 Room Air 07/10/20 04:00 88 15 125/73 (90) 98 07/10/20 03:05 89 07/10/20 03:00 92 14 148/72 (97) 100 07/10/20 02:00 85 15 110/67 (81) 97 07/10/20 01:00 84 15 115/62 (79) 96 07/10/20 00:00 98.5 86 15 132/72 (92) 100 07/10/20 00:00 Room Air 07/09/20 23:24 84 07/09/20 23:00 84 13 138/77 (97) 100 07/09/20 22:00 92 18 132/68 (89) 96 07/09/20 21:21 103 162/76 07/09/20 21:00 102 16 162/76 (104) 100 07/09/20 20:00 98.4 101 20 169/82 (111) 100 07/09/20 20:00 Room Air 07/09/20 20:00 107 07/09/20 19:00 108 20 164/80 (108) 100 07/09/20 18:00 111 17 144/66 (92) 100 07/09/20 17:00 106 19 141/67 (91) 100 07/09/20 16:00 100 07/09/20 16:00 98.4 98 15 122/71 (88) 99 07/09/20 16:00 Room Air 07/09/20 15:00 102 16 128/66 (86) 97 07/09/20 14:00 105 19 143/69 (93) 100 07/09/20 13:00 105 20 148/77 (100) 07/09/20 12:00 100 07/09/20 12:00 Room Air 07/09/20 12:00 98.3 109 19 132/68 (89) 100 07/09/20 11:00 99 15 168/77 (107) 100 07/09/20 10:00 102 17 152/74 (100) 99 07/09/20 09:00 100 16 152/74 (100) 100 07/09/20 08:46 162/82 07/09/20 08:46 111 162/82 07/09/20 08:00 98.1 106 16 162/82 (108) 100 07/09/20 08:00 102 07/09/20 08:00 Room Air 07/09/20 07:00 105 9 154/71 (98) 100 Intake and Output 0 07/09/20 07/10/20 19:00 07:00 Intake Total 2911.5743 ml 1591.5418 ml Output Total 750 ml 900 ml Balance 2161.5743 ml 691.5418 ml Intake Oral 1640 ml 440 ml IV Total 1251.5743 ml 1151.5418 ml Other 20 ml Output Urine Total 750 ml 900 ml Laboratory Tests 07/09/20 08:50: White Blood Count 22.8*H, Red Blood Count 3.95L, Hemoglobin 12.0L, Hematocrit 36.0L, Mean Corpuscular Volume 91#, Mean Corpuscular Hemoglobin 30.4, Mean Corpuscular Hemoglobin Concent 33.3, Red Cell Distribution Width 12.5, Platelet Count 261, Mean Platelet Volume 9.8, Neutrophils (%) (Auto) , Lymphocytes (%) (Auto) , Monocytes (%) (Auto) , Eosinophils (%) (Auto) , Basophils (%) (Auto) , Differential Total Cells Counted 100, Neutrophils % (Manual) 89H, Lymphocytes % (Manual) 8L, Monocytes % (Manual) 3, Eosinophils % (Manual) 0, Basophils % (Manual) 0, Band Neutrophils 0, Platelet Estimate Adequate, Platelet Morphology Normal, Hypochromasia 1+ 07/09/20 10:55: Troponin I 14.294H 07/09/20 11:46: POC Whole Blood Glucose 130H 07/09/20 13:50: White Blood Count 18.2H, Red Blood Count 3.64L, Hemoglobin 11.1L, Hematocrit 33.2L, Mean Corpuscular Volume 91, Mean Corpuscular Hemoglobin 30.4, Mean Corpuscular Hemoglobin Concent 33.3, Red Cell Distribution Width 12.4, Platelet Count 229, Mean Platelet Volume 9.9, Neutrophils (%) (Auto) , Lymphocytes (%) (Auto) , Monocytes (%) (Auto) , Eosinophils (%) (Auto) , Basophils (%) (Auto) , Differential Total Cells Counted 100, Neutrophils % (Manual) 90H, Lymphocytes % (Manual) 7L, Monocytes % (Manual) 3, Eosinophils % (Manual) 0, Basophils % (Manual) 0, Band Neutrophils 0, Platelet Estimate Adequate, Platelet Morphology Normal, Hypochromasia 1+, Activated Partial Thromboplast Time 24 07/09/20 18:14: POC Whole Blood Glucose 115H 07/09/20 19:46: Activated Partial Thromboplast Time 28, Troponin I 8.217H 07/09/20 21:07: POC Whole Blood Glucose 109H 07/09/20 23:29: POC Whole Blood Glucose [Pending] 07/10/20 02:30: POC Whole Blood Glucose 86 07/10/20 03:20: White Blood Count 11.8H, Red Blood Count 3.62L, Hemoglobin 10.9L, Hematocrit 33.2L, Mean Corpuscular Volume 92, Mean Corpuscular Hemoglobin 30.1, Mean Corpuscular Hemoglobin Concent 32.9, Red Cell Distribution Width 12.6, Platelet Count 222, Mean Platelet Volume 10.8H, Neutrophils (%) (Auto) 76.9H, Lymphocytes (%) (Auto) 14.7L, Monocytes (%) (Auto) 7.3, Eosinophils (%) (Auto) 0.4, Basophils (%) (Auto) 0.8, Activated Partial Thromboplast Time 70H, Sodium Level 136, Potassium Level 3.5, Chloride Level 106, Carbon Dioxide Level 23, Anion Gap 8, Blood Urea Nitrogen 33H, Creatinine 2.7H, Estimat Glomerular Filtration Rate 26.7, Glucose Level 66L, Uric Acid 6.1, Calcium Level 8.1L, Phosphorus Level 2.9, Magnesium Level 1.9, Total Bilirubin 0.4, Aspartate Amino Transf (AST/SGOT) 45H, Alanine Aminotransferase (ALT/SGPT) 30, Alkaline Phosphatase 116, Troponin I 6.829H, C-Reactive Protein, Quantitative 5.1H, Pro-B-Type Natriuretic Peptide 5783H, Total Protein 5.9L, Albumin 2.4L, Globulin 3.5, Albumin/Globulin Ratio 0.7L, Triglycerides Level 99, Cholesterol Level 180, LDL Cholesterol 105H, HDL Cholesterol 60, Cholesterol/HDL Ratio 3.0L 07/10/20 04:47: POC Whole Blood Glucose [Pending] 07/10/20 05:17: POC Whole Blood Glucose [Pending] Height (Feet): 5 Height (Inches): 7.00 Weight (Pounds): 160 General Appearance: no apparent distress Neck: normal alignment Cardiovascular: normal rate Respiratory/Chest: decreased breath sounds Abdomen: normal bowel sounds Objective Current Medications Medications (Trade) Dose Ordered Sig/Chris Route PRN Reason Start Time Stop Time Status Last Admin Dose Admin Amlodipine Besylate (Norvasc) 10 mg DAILY ORAL 07/09/20 09:00 08/08/20 08:59 07/09/20 08:46 Atorvastatin Calcium (Lipitor) 10 mg BEDTIME ORAL 07/09/20 21:00 10/07/20 20:59 07/09/20 21:20 Clonidine HCl (Catapres Tab) 0.1 mg Q4H PRN ORAL BP over 160 systolic 07/08/20 13:30 10/06/20 13:29 Dextrose (Dextrose 50%) 25 ml Q30M PRN IV Hypoglycemia 07/08/20 20:30 10/06/20 20:29 Dextrose (Dextrose 50%) 50 ml Q30M PRN IV Hypoglycemia 07/08/20 20:30 10/06/20 20:29 Heparin Sodium/ Dextrose 500 ml @ 23.224 mls/ hr ADJUST PER PROTOCOL IV 07/09/20 21:00 08/08/20 20:59 07/09/20 21:25 Insulin Aspart (NovoLOG) EVERY 6 HOURS SUBQ 07/09/20 06:30 10/06/20 20:59 07/09/20 23:39 Insulin Aspart (NovoLOG) 10 units THREE TIMES A DAY SUBQ 07/09/20 09:00 10/07/20 08:59 07/09/20 18:21 Insulin Detemir (Levemir) 40 units Q24H SUBQ 07/09/20 21:00 10/06/20 20:59 07/09/20 21:24 Metoprolol Tartrate (Lopressor) 12.5 mg Q12HR ORAL 07/09/20 21:00 10/07/20 20:59 07/09/20 21:21 Morphine Sulfate (Morphine Sulfate) 2 mg Q3H PRN IVP For Pain 07/09/20 23:15 07/16/20 23:14 07/09/20 23:27 Nitroglycerin (Ntg) 0.4 mg Q5M PRN SL Prn Chest Pain 07/09/20 07:45 08/08/20 07:44 Pantoprazole (Protonix) 40 mg EVERY 12 HOURS ORAL 07/08/20 21:00 08/07/20 20:59 07/09/20 21:21 Sodium Chloride 1,000 ml @ 100 mls/hr Q10H IV 07/08/20 20:30 08/07/20 20:29 07/10/20 03:40 Tamsulosin HCl (Flomax) 0.4 mg BID ORAL 07/08/20 21:00 08/07/20 20:59 07/09/20 18:18 Tramadol HCl (Ultram) 50 mg Q6H PRN ORAL pain 7-10 07/08/20 23:45 07/15/20 23:44 07/09/20 18:19 Assessment/Plan Problem List: (1) Diabetes mellitus type 1 (2) Diabetic keto-acidosis ICD Codes: E11.10 - Type 2 diabetes mellitus with ketoacidosis without coma SNOMED: 176857041, [id number] Status: progressing Assessment/Plan: reduce Levemir to 30 units qhs continue Novolog 10 units ac tid + SSI hypoglycemic protocol in order Dallas Dowling MD Jul 10, 2020 06:31
--- NOTE | 2020-07-10 07:21 | NUR ---
NURSE HAND-OFF REPORT: Latest Vital Signs: Temperature 98.2 , Pulse 91 , B/P 146 /76 , Respiratory Rate 10 , O2 SAT 98 , Room Air, O2 Flow Rate . Vital Sign Comment: Stable EKG Rhythm: Sinus Rhythm Rhythm change?: N MD Notified?: - MD Response: Latest Mc Fall Score: 35 Fall Risk: Medium Risk Safety Measures: Call light Within Reach, Bed Alarm Zone 1, Side Rails Side Rails x3, Bed position Low and Locked. Fall Precautions: Yellow Socks Yellow Gown Patient Fall Education Report given to .
[2020-07-10] MEDS: Metoprolol Tartrate 12.5mg TAB ORAL SCH (09:00)
[2020-07-10] MEDS: Tamsulosin 0.4mg cap ORAL SCH (09:00)
--- NOTE | 2020-07-10 09:07 | NUR ---
AWAKE/ALERT V/S CONDITIONSTABLE CONT, HEPARINDRIP WILL MOMITOR TROPONIN
--- NOTE | 2020-07-10 11:30 | NUR ---
NURSE NOTES: Received report from BRIAN Putnam. The patient is resting on the bed without acute distress or shortness of breath. The patient is AOx4 and able to make needs known via verbal communication. The patient is irritable since the patient does not want to stay at the hospital anymore as the patient does not have any pain or discomfort and would like to leave the hospital. 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 The patient is on RA and oxygen saturation is 100%. The patient is on CCHO medium diet. The patient is continent x2 and using urinal and bedside commode for urination and defecation. No skin issue noted. The patient has L AC 18G and L hand 20G those are intact and patent and running NS @ 100mL/hr and Heparin drip @ 16 units/kg/hr, which is 23.224mL/hr as ordered and drip figure verified with two RNs. Per BRIAN Putnam, the patient had episode of hypoglycemia with BS of 60s in the morning and juice and cracker provided. The patient's bed in the lowest position, call light in reach, and fall and aspiration precaution reinforced. IV site intact and patent. Will follow up the lab and order. Will closely monitor the patient. Will continue plan of care. Addendum: 07/10/20 at 1836 by Tra Ospina RN As the last PTT was 70, ntext PTT to be done 11/25 AM.
--- NOTE | 2020-07-10 12:00 | NUR ---
NURSE NOTES: The patient declined to check blood sugar. The patient refused to draw Troponin even though the primary nurse explained importance of Troponin level check per order. The patient strongly refused. CRN was notified. Dr. Mc and Dr. Moran were notified. Per patient, the patient does not have any discomfort, no chest pain at this time and would like to leave hospital now. The patient starts to be aggressive. Will closely monitor the patient. Will continue plan of care.
--- NOTE | 2020-07-10 12:16 | NUR ---
NURSE NOTES: The patient is getting more aggressive and combative and insisting that the patient will leave the hospital. Education provided regarding the patient's condition of NSTEMI with elevated Troponin and unsafe to leave hospital since the patient needs medical treatment. Explained the risks and consequences involving in leaving the hospital at this time, the benefits of continued treatment and hospitalization, and the alternatives, but the patient verbalized that he will leave the hospital after signing AMA form now. The patient signed AMA form on 1216. Dr. Moran, Dr. Mc, and BRIAN were notified. Removed IV, nameband, telebox by primary RN. Belongings taken with the patient. The patient got escorted out to the hospital by primary RN. The patient safely got out from the hospital without any discomfort.
--- NOTE | 2020-07-10 13:00 | Cardiac Electrophysiology PN ---
Assessment/Plan Assessment/Plan 1. NSTEMI with Elevated troponin of 14 and chest pain and T-wave inversion in lead I, aVL. At this time, patient denies any chest pain. On aspirin and Lipitor and Lopressor 12.5 bid Echocardiogram showed ejection fraction of 65 to 70%. 2. Hypertension, on amlodipine 10 mg daily and Lopressor 12.5 mg bid 3. Diabetic ketoacidosis, on insulin. 4. Renal failure. Patient was evaluated by Dr. Riley. 5. Diabetic ketoacidosis. Follow up by Dr. Rubio. AMBER RN Subjective Subjective No CP or SOB. In ICU as Troponin was as high as 14 Objective Last 24 Hour Vital Signs Date Time Temp Pulse Resp B/P (MAP) Pulse Ox O2 Delivery O2 Flow Rate FiO2 07/10/20 11:00 86 12 160/72 (101) 100 07/10/20 10:00 99 15 179/83 (115) 100 07/10/20 09:00 100 179/83 07/10/20 09:00 100 179/83 07/10/20 09:00 97.8 90 21 173/86 (115) 100 07/10/20 08:00 Room Air 07/10/20 08:00 97 07/10/20 08:00 90 14 169/80 (109) 100 07/10/20 07:00 91 10 146/76 (99) 98 07/10/20 06:00 94 13 160/80 (106) 100 07/10/20 05:00 98.2 98 15 162/72 (102) 100 07/10/20 04:00 Room Air 07/10/20 04:00 88 15 125/73 (90) 98 07/10/20 03:05 89 07/10/20 03:00 92 14 148/72 (97) 100 07/10/20 02:00 85 15 110/67 (81) 97 07/10/20 01:00 84 15 115/62 (79) 96 07/10/20 00:00 98.5 86 15 132/72 (92) 100 07/10/20 00:00 Room Air 07/09/20 23:24 84 07/09/20 23:00 84 13 138/77 (97) 100 07/09/20 22:00 92 18 132/68 (89) 96 07/09/20 21:21 103 162/76 07/09/20 21:00 102 16 162/76 (104) 100 07/09/20 20:00 98.4 101 20 169/82 (111) 100 07/09/20 20:00 Room Air 07/09/20 20:00 107 07/09/20 19:00 108 20 164/80 (108) 100 07/09/20 18:00 111 17 144/66 (92) 100 07/09/20 17:00 106 19 141/67 (91) 100 07/09/20 16:00 100 07/09/20 16:00 98.4 98 15 122/71 (88) 99 07/09/20 16:00 Room Air 07/09/20 15:00 102 16 128/66 (86) 97 07/09/20 14:00 105 19 143/69 (93) 100 07/09/20 13:00 105 20 148/77 (100) Intake and Output 07/09/20 07/10/20 19:00 07:00 Intake Total 2911.5743 ml 1837.9898 ml Output Total 750 ml 900 ml Balance 2161.5743 ml 937.9898 ml Intake Oral 1640 ml 440 ml IV Total 1251.5743 ml 1397.9898 ml Other 20 ml Output Urine Total 750 ml 900 ml Laboratory Tests Test 07/09/20 13:50 07/09/20 18:14 07/09/20 19:46 07/09/20 21:07 White Blood Count 18.2 K/UL (4.8-10.8) H Red Blood Count 3.64 M/UL (4.70-6.10) L Hemoglobin 11.1 G/DL (14.2-18.0) L Hematocrit 33.2 % (42.0-52.0) L Mean Corpuscular Volume 91 FL (80-99) Mean Corpuscular Hemoglobin 30.4 PG (27.0-31.0) Mean Corpuscular Hemoglobin Concent 33.3 G/DL (32.0-36.0) Red Cell Distribution Width 12.4 % (11.6-14.8) Platelet Count 229 K/UL (150-450) Mean Platelet Volume 9.9 FL (6.5-10.1) Neutrophils (%) (Auto) % (45.0-75.0) Lymphocytes (%) (Auto) % (20.0-45.0) Monocytes (%) (Auto) % (1.0-10.0) Eosinophils (%) (Auto) % (0.0-3.0) Basophils (%) (Auto) % (0.0-2.0) Differential Total Cells Counted 100 Neutrophils % (Manual) 90 % (45-75) H Lymphocytes % (Manual) 7 % (20-45) L Monocytes % (Manual) 3 % (1-10) Eosinophils % (Manual) 0 % (0-3) Basophils % (Manual) 0 % (0-2) Band Neutrophils 0 % (0-8) Platelet Estimate Adequate Platelet Morphology Normal Hypochromasia 1+ Activated Partial Thromboplast Time 24 SEC (23-33) 28 SEC (23-33) POC Whole Blood Glucose 115 MG/DL (74-106) H 109 MG/DL (74-106) H Troponin I 8.217 ng/mL (0.000-0.056) Test 07/09/20 23:29 07/10/20 02:30 07/10/20 03:20 07/10/20 04:47 POC Whole Blood Glucose Pending 86 MG/DL (74-106) Pending White Blood Count 11.8 K/UL (4.8-10.8) H Red Blood Count 3.62 M/UL (4.70-6.10) L Hemoglobin 10.9 G/DL (14.2-18.0) L Hematocrit 33.2 % (42.0-52.0) L Mean Corpuscular Volume 92 FL (80-99) Mean Corpuscular Hemoglobin 30.1 PG (27.0-31.0) Mean Corpuscular Hemoglobin Concent 32.9 G/DL (32.0-36.0) Red Cell Distribution Width 12.6 % (11.6-14.8) Platelet Count 222 K/UL (150-450) Mean Platelet Volume 10.8 FL (6.5-10.1) H Neutrophils (%) (Auto) 76.9 % (45.0-75.0) H Lymphocytes (%) (Auto) 14.7 % (20.0-45.0) L Monocytes (%) (Auto) 7.3 % (1.0-10.0) Eosinophils (%) (Auto) 0.4 % (0.0-3.0) Basophils (%) (Auto) 0.8 % (0.0-2.0) Activated Partial Thromboplast Time 70 SEC (23-33) H Sodium Level 136 MMOL/L (136-145) Potassium Level 3.5 MMOL/L (3.5-5.1) Chloride Level 106 MMOL/L (98-107) Carbon Dioxide Level 23 MMOL/L (21-32) Anion Gap 8 mmol/L (5-15) Blood Urea Nitrogen 33 mg/dL (7-18) H Creatinine 2.7 MG/DL (0.55-1.30) H Estimat Glomerular Filtration Rate 26.7 mL/min (>60) Glucose Level 66 MG/DL (74-106) L Uric Acid 6.1 MG/DL (2.6-7.2) Calcium Level 8.1 MG/DL (8.5-10.1) L Phosphorus Level 2.9 MG/DL (2.5-4.9) Magnesium Level 1.9 MG/DL (1.8-2.4) Total Bilirubin 0.4 MG/DL (0.2-1.0) Aspartate Amino Transf (AST/SGOT) 45 U/L (15-37) H Alanine Aminotransferase (ALT/SGPT) 30 U/L (12-78) Alkaline Phosphatase 116 U/L (46-116) Troponin I 6.829 ng/mL (0.000-0.056) C-Reactive Protein, Quantitative 5.1 mg/dL (0.00-0.90) H Pro-B-Type Natriuretic Peptide 5783 pg/mL (0-125) H Total Protein 5.9 G/DL (6.4-8.2) L Albumin 2.4 G/DL (3.4-5.0) L Globulin 3.5 g/dL Albumin/Globulin Ratio 0.7 (1.0-2.7) L Triglycerides Level 99 MG/DL (30-150) Cholesterol Level 180 MG/DL (< 200) LDL Cholesterol 105 mg/dL (<100) H HDL Cholesterol 60 MG/DL (40-60) Cholesterol/HDL Ratio 3.0 (3.3-4.4) L Test 07/10/20 05:17 POC Whole Blood Glucose Pending Microbiology Date/Time Source Procedure Growth Status 07/08/20 10:38 Rectum - Final NO CARBAPENEM-RESISTANT ENTEROBACTERI... Complete 07/08/20 10:38 Rectum VRE Culture - Final NO VANCOMYCIN RESISTANT ENTEROCOCCUS ... Complete 07/08/20 10:38 Nasal Nares MRSA Culture - Final NO METHICILLIN RESISTANT STAPH AUREUS... Complete Objective HEAD AND NECK: No JVD. LUNGS: Coarse rhonchi. CARDIOVASCULAR: Regular S1 and S2 with no gallop or murmur. ABDOMEN: Soft. EXTREMITIES: No pitting edema. Tyrell Mc MD Jul 10, 2020 12:59
--- NOTE | 2020-07-10 13:12 | Nephrology Progress Note ---
Assessment/Plan Problem List: (1) Dehydration (2) GIOVANNI (acute kidney injury) (3) Electrolyte imbalance (4) DKA (diabetic ketoacidoses) (5) Diabetic keto-acidosis (6) Elevated troponin I level Assessment 39-year-old presents with DKA Acute renal failure Underlying chronic kidney disease Insulin-dependent diabetes mellitus Severe electrolyte abnormalities mainly related to severe hyperglycemia Plan July 10: Serum creatinine lower. Blood sugar better controlled. Abnormal electrolyte addressed. Serum troponin I peaked to 14 and now back to 6. Continue per cardiology. Add aspirin and nitro patch to current medication regimen. July 09: Serum creatinine lowering. Blood sugar better controlled. Abnormal electrolytes addressed. Discussed with RN. Continue per orders. Blood sugar control Per Endo IV hydration Monitor renal parameters Kidney ultrasound Urine studies Per orders Subjective ROS Limited/Unobtainable: No Constitutional: Reports: malaise Objective Objective Last 24 Hour Vital Signs Date Time Temp Pulse Resp B/P (MAP) Pulse Ox O2 Delivery O2 Flow Rate FiO2 07/10/20 11:00 86 12 160/72 (101) 100 07/10/20 10:00 99 15 179/83 (115) 100 07/10/20 09:00 100 179/83 07/10/20 09:00 100 179/83 07/10/20 09:00 97.8 90 21 173/86 (115) 100 07/10/20 08:00 Room Air 07/10/20 08:00 97 07/10/20 08:00 90 14 169/80 (109) 100 07/10/20 07:00 91 10 146/76 (99) 98 07/10/20 06:00 94 13 160/80 (106) 100 07/10/20 05:00 98.2 98 15 162/72 (102) 100 07/10/20 04:00 Room Air 07/10/20 04:00 88 15 125/73 (90) 98 07/10/20 03:05 89 07/10/20 03:00 92 14 148/72 (97) 100 07/10/20 02:00 85 15 110/67 (81) 97 07/10/20 01:00 84 15 115/62 (79) 96 07/10/20 00:00 98.5 86 15 132/72 (92) 100 07/10/20 00:00 Room Air 07/09/20 23:24 84 07/09/20 23:00 84 13 138/77 (97) 100 07/09/20 22:00 92 18 132/68 (89) 96 07/09/20 21:21 103 162/76 07/09/20 21:00 102 16 162/76 (104) 100 07/09/20 20:00 98.4 101 20 169/82 (111) 100 07/09/20 20:00 Room Air 07/09/20 20:00 107 07/09/20 19:00 108 20 164/80 (108) 100 07/09/20 18:00 111 17 144/66 (92) 100 07/09/20 17:00 106 19 141/67 (91) 100 07/09/20 16:00 100 07/09/20 16:00 98.4 98 15 122/71 (88) 99 07/09/20 16:00 Room Air 07/09/20 15:00 102 16 128/66 (86) 97 07/09/20 14:00 105 19 143/69 (93) 100 Intake and Output 07/09/20 07/10/20 19:00 07:00 Intake Total 2911.5743 ml 1837.9898 ml Output Total 750 ml 900 ml Balance 2161.5743 ml 937.9898 ml Intake Oral 1640 ml 440 ml IV Total 1251.5743 ml 1397.9898 ml Other 20 ml Output Urine Total 750 ml 900 ml Current Medications Medications (Trade) Dose Ordered Sig/Chris Route PRN Reason Start Time Stop Time Status Last Admin Dose Admin Amlodipine Besylate (Norvasc) 10 mg DAILY ORAL 07/09/20 09:00 08/08/20 08:59 07/10/20 09:00 Atorvastatin Calcium (Lipitor) 10 mg BEDTIME ORAL 07/09/20 21:00 10/07/20 20:59 07/09/20 21:20 Clonidine HCl (Catapres Tab) 0.1 mg Q4H PRN ORAL BP over 160 systolic 07/08/20 13:30 10/06/20 13:29 Dextrose (Dextrose 50%) 25 ml Q30M PRN IV Hypoglycemia 07/08/20 20:30 10/06/20 20:29 Dextrose (Dextrose 50%) 50 ml Q30M PRN IV Hypoglycemia 07/08/20 20:30 10/06/20 20:29 Heparin Sodium/ Dextrose 500 ml @ 23.224 mls/ hr ADJUST PER PROTOCOL IV 07/09/20 21:00 08/08/20 20:59 07/09/20 21:25 Insulin Aspart (NovoLOG) EVERY 6 HOURS SUBQ 07/09/20 06:30 10/06/20 20:59 07/09/20 23:39 Insulin Aspart (NovoLOG) 10 units THREE TIMES A DAY SUBQ 07/09/20 09:00 10/07/20 08:59 07/09/20 18:21 Insulin Detemir (Levemir) 30 units Q24H SUBQ 07/10/20 21:00 10/06/20 20:59 Metoprolol Tartrate (Lopressor) 12.5 mg Q12HR ORAL 07/09/20 21:00 10/07/20 20:59 07/10/20 09:00 Morphine Sulfate (Morphine Sulfate) 2 mg Q3H PRN IVP For Pain 07/09/20 23:15 07/16/20 23:14 07/09/20 23:27 Nitroglycerin (Ntg) 0.4 mg Q5M PRN SL Prn Chest Pain 07/09/20 07:45 08/08/20 07:44 Pantoprazole (Protonix) 40 mg EVERY 12 HOURS ORAL 07/08/20 21:00 08/07/20 20:59 07/10/20 09:00 Sodium Chloride 1,000 ml @ 100 mls/hr Q10H IV 07/08/20 20:30 08/07/20 20:29 07/10/20 03:40 Tamsulosin HCl (Flomax) 0.4 mg BID ORAL 07/08/20 21:00 08/07/20 20:59 07/10/20 09:00 Tramadol HCl (Ultram) 50 mg Q6H PRN ORAL pain 7-10 07/08/20 23:45 07/15/20 23:44 07/09/20 18:19 Laboratory Tests 07/09/20 13:50: White Blood Count 18.2H, Red Blood Count 3.64L, Hemoglobin 11.1L, Hematocrit 33.2L, Mean Corpuscular Volume 91, Mean Corpuscular Hemoglobin 30.4, Mean Corpuscular Hemoglobin Concent 33.3, Red Cell Distribution Width 12.4, Platelet Count 229, Mean Platelet Volume 9.9, Neutrophils (%) (Auto) , Lymphocytes (%) (Auto) , Monocytes (%) (Auto) , Eosinophils (%) (Auto) , Basophils (%) (Auto) , Differential Total Cells Counted 100, Neutrophils % (Manual) 90H, Lymphocytes % (Manual) 7L, Monocytes % (Manual) 3, Eosinophils % (Manual) 0, Basophils % (Manual) 0, Band Neutrophils 0, Platelet Estimate Adequate, Platelet Morphology Normal, Hypochromasia 1+, Activated Partial Thromboplast Time 24 07/09/20 18:14: POC Whole Blood Glucose 115H 07/09/20 19:46: Activated Partial Thromboplast Time 28, Troponin I 8.217H 07/09/20 21:07: POC Whole Blood Glucose 109H 07/09/20 23:29: POC Whole Blood Glucose [Pending] 07/10/20 02:30: POC Whole Blood Glucose 86 07/10/20 03:20: White Blood Count 11.8H, Red Blood Count 3.62L, Hemoglobin 10.9L, Hematocrit 33.2L, Mean Corpuscular Volume 92, Mean Corpuscular Hemoglobin 30.1, Mean Corpuscular Hemoglobin Concent 32.9, Red Cell Distribution Width 12.6, Platelet Count 222, Mean Platelet Volume 10.8H, Neutrophils (%) (Auto) 76.9H, Lymphocytes (%) (Auto) 14.7L, Monocytes (%) (Auto) 7.3, Eosinophils (%) (Auto) 0.4, Basophils (%) (Auto) 0.8, Activated Partial Thromboplast Time 70H, Sodium Level 136, Potassium Level 3.5, Chloride Level 106, Carbon Dioxide Level 23, Anion Gap 8, Blood Urea Nitrogen 33H, Creatinine 2.7H, Estimat Glomerular Filtration Rate 26.7, Glucose Level 66L, Uric Acid 6.1, Calcium Level 8.1L, Phosphorus Level 2.9, Magnesium Level 1.9, Total Bilirubin 0.4, Aspartate Amino Transf (AST/SGOT) 45H, Alanine Aminotransferase (ALT/SGPT) 30, Alkaline Phosphatase 116, Troponin I 6.829H, C-Reactive Protein, Quantitative 5.1H, Pro-B-Type Natriuretic Peptide 5783H, Total Protein 5.9L, Albumin 2.4L, Globulin 3.5, Albumin/Globulin Ratio 0.7L, Triglycerides Level 99, Cholesterol Level 180, LDL Cholesterol 105H, HDL Cholesterol 60, Cholesterol/HDL Ratio 3.0L 07/10/20 04:47: POC Whole Blood Glucose [Pending] 07/10/20 05:17: POC Whole Blood Glucose [Pending] Height (Feet): 5 Height (Inches): 7.00 Weight (Pounds): 160 General Appearance: no apparent distress, lethargic Cardiovascular: tachycardia Respiratory/Chest: decreased breath sounds Abdomen: distended Santi Riley MD Jul 10, 2020 13:12
[2020-07-10] MEDS ORDERED: Nitroglycerin Patch 0.4mg TDERMAL SCH (14:00)
[2020-07-10] MEDS ORDERED: Levemir Flexpen SUBQ SCH (21:00)
--- NOTE | 2020-07-11 13:00 | Cardiology Report ---
APPROVED REPORT EKG Measurement Heart [id number] <Conclusion> Normal sinus rhythm Nonspecific T wave abnormality Abnormal ECG
--- NOTE | 2020-07-12 11:14 | Discharge Summary ---
Discharge Summary Discharge Summary _ DATE OF ADMISSION: 07/08/2020 DATE OF DISCHARGE: 07/10/2020 Patient left AGAINST MEDICAL ADVICE REASON FOR ADMISSION: 39 years old male with past medical history of hypertension, diabetes mellitus, presented with generalized weakness and elevated blood sugar. He reported epigastric pain with associated multiple episodes of nonbloody vomiting and nonbloody diarrhea. Patient apparently ran out of his short acting insulin. He was still taking long-acting insulin. Patient reported increased thirst and increased urination. He denied any fever or chills. He had recent negative coronavirus testing. Patient currently was staying in transitional housing. Patient was tested as high when brought by paramedics. Upon evaluation patient was tachycardic with heart rate 124 , tachypneic with respiratory rate 26 , blood pressure was 162/71, pulse oximetry was stable on room air; and patient was afebrile. Laboratory work-up revealed significant leukocytosis WBC 21.9 , stable hemoglobin and hematocrit. Chemistry revealed sodium 125, potassium 5.8. CO2 5. Anion gap 32. Glucose 1079. BUN 64, creatinine 4.0 Troponin 0.088. Stable LFT. Urine toxicology screen was positive for marijuana. Urinalysis revealed +4 protein, +4 glucose, no evidence of UTI. Chest x-ray demonstrated no focal infiltrate In emergency department patient received IV hydration ,started on insulin drip, received antiemetic and admitted to ICU for further management. CONSULTANTS: senior environmental engineer Dr. Morales cake cutter machine Dr. Josey LUCAS specialist Dr. Leon Perdomo vice president of instruction Dr Riley [facility] COURSE: Patient admitted to ICU . Patient was on insulin drip . blood sugar was managed as per cake cutter machine recommendation . When anion gap closed , patient started on long-acting Levemir and short acting NovoLog premeal along with sliding scale of insulin as needed. Hypoglycemia protocol was in place. Diabetic diet and diabetic teaching provided. Hemoglobin A1c 12.2, clearly not at goal. Patient will need close monitoring of blood sugar management as outpatient and adherence to medication regimen to bring hemoglobin A1c under control. Renal parameters and electrolytes were closely monitored, electrolytes corrected as needed, and nephrotoxic's were avoided. Urine studies were done. Renal ultrasound revealed mild right hydronephrosis , no definite stones. With IV hydration creatinine trended down and prior to signing AMA creatinine from 4.0 down to 2.7. Hyponatremia resolved :sodium 136 . Acute kidney injury was most likely due to dehydration, brought by DKA ; and severe electrolyte abnormality was mainly related to severe hyperglycemia. Second troponin up to 14.29 . Echocardiogram revealed preserved ejection fraction 65 to 70%. No evidence of wall motion abnormality. EKG showed T wave inversion in lead I and aVL. Patient was on antiplatelet therapy with aspirin, beta blockage and statin. Blood pressure was managed with calcium channel arnol and beta-arnol. On 07/10 patient decided to leave the hospital AGAINST MEDICAL ADVICE. He was getting more aggressive and combative. The risks and consequences of signing AGAINST MEDICAL ADVICE were discussed with patient in detail. Patient verbalized understanding, nevertheless signed AMA form and left. FINAL DIAGNOSES: Diabetic ketoacidosis NSTEMI Acute kidney injury Electrolyte imbalance Dehydration I have been assigned to dictate discharge summary for this account. I was not involved in the patient's management. Jacqui Andujar NP Jul 12, 2020 11:14
--- NOTE | 2020-07-13 14:51 | NUR ---
INSURANCE DC SUMMARY FAXED TO [facility] [phone]
== END 2020-07-10 13:30 | disposition left against medical advice (07) | DRG 420 ==
LOC: EDBD 09:00 → EMR 09:12 → ICU 10:12 → EDBEDREQ 18:16
DX: E10.10 Type 1 diabetes mellitus with ketoacidosis without coma (principal); I21.4 Non-ST elevation (NSTEMI) myocardial infarction; R65.11 Systemic inflammatory response syndrome (SIRS) of non-infectious origin with acute organ dysfunction; N17.9 Acute kidney failure, unspecified; E10.22 Type 1 diabetes mellitus with diabetic chronic kidney disease; N18.9 Chronic kidney disease, unspecified; E86.0 Dehydration; Z79.4 Long term (current) use of insulin; Z91.14 Patient's other noncompliance with medication regimen; E87.8 Other disorders of electrolyte and fluid balance, not elsewhere classified
CPT/HCPCS: 36415; 71045; 76770; 80048; 80053; 80061; 80307; 81003; 82009; 82803; 82962; 83036; 83690; 83735; 83880; 84100; 84300; 84443; 84484; 84550; 85007; 85025; 85730; 86140; 87081; 93005; 93306; 96365; 96375; 99291; J1815; J2405; J2765; J7030; J8499; S5561